=== PATIENT | female | born 1945 | race Caucasian/White ===

== ENCOUNTER → 2016-08-16 | Outpatient (CLI) | payer MEDICARE ==
--- NOTE | 2016-08-17 10:36 | MM ---
Reason for exam: screening (asymptomatic). Last mammogram was performed 2 years and 11 months ago. History: Family history of breast cancer in mother at age 59 and breast cancer in maternal grandmother. Benign excisional biopsy of the right breast, 1998. Physical Findings: A clinical breast exam by your physician is recommended on an annual basis and results should be correlated with mammographic findings. MG Screening Mammo w CAD Bilateral CC and MLO view(s) were taken. Prior study comparison: September 23, 2013, bilateral MG screening mammo w CAD. January 19, 2011, mammogram, performed at [facility]. The breast tissue is almost entirely fat. No significant changes when compared with prior studies. ASSESSMENT: Benign, BI-RAD 2 RECOMMENDATION: Routine screening mammogram of both breasts in 1 year.
== END | disposition home or self-care (01) ==
LOC: RADMAMWWP 09:15
PROVIDERS: ATTEND Family Medicine
DX: Z12.31 Encounter for screening mammogram for malignant neoplasm of breast (principal)

== ENCOUNTER 2017-06-15 10:34 | Emergency (ER) | payer MEDICARE ==
--- NOTE | 2017-06-15 11:25 | ED ---
General Adult HPI - General Chief complaint: Fall Stated complaint: fall, rt rib pain Time Seen by Provider: 06/15/17 11:07 Source: patient, RN notes reviewed Mode of arrival: ambulatory Limitations: no limitations - History of Present Illness Initial comments: 71-year-old female presents to the emergency department with a chief complaint of right-sided rib pain. Patient states she was in the shower last night she went to get up out of the tub she slipped and landed onto her right ribs. Patient states that the lower right ribs hurt. She states that certain movements will make them her but if she sits still she has no pain. She's not requiring any pain medication. She states she did not hit her head. There is no lightheadedness or dizziness no loss of consciousness prior to the incident. She states that she has no abdominal pain with this. No nausea no vomiting. She states that she was concerned due to the right rib pain today so she thought that she should be evaluated to ensure if she has broken ribs or not. Patient denies any other symptoms at this time.Patient denies any recent fever, chills, shortness of breath, chest pain, back pain, abdominal pain, nausea vomiting, numbness or tingling, dysuria or hematuria, constipation or diarrhea, headaches or visual changes, or any other current symptoms. - Related Data Home Medications Medication Instructions Recorded Confirmed Budesonide-Formot 160-4.5 Mcg 2 puff INHALATION RT-BID 10/06/15 06/15/17 [Symbicort 160-4.5 Mcg Inhaler] Metoprolol Tartrate [Lopressor] 50 mg PO DAILY 10/06/15 06/15/17 Simvastatin [Zocor] 40 mg PO HS 10/06/15 06/15/17 Venlafaxine HCl [Effexor] 75 mg PO BID 10/06/15 06/15/17 traZODone HCL [Desyrel] 200 mg PO HS 10/06/15 06/15/17 Albuterol Sulfate [Proventil Hfa] 2 puff INHALATION RT-Q4H PRN 06/15/17 06/15/17 L.acidoph,Paracasei, B.lactis 1 cap PO DAILY 06/15/17 06/15/17 [Probiotic] Allergies Allergy/AdvReac Type Severity Reaction Status Date / Time Sulfa (Sulfonamide Allergy Rash/Hives Verified 06/15/17 11:17 Antibiotics) Review of Systems ROS Statement: Those systems with pertinent positive or pertinent negative responses have been documented in the HPI. ROS Other: All systems not noted in ROS Statement are negative. Past Medical History Past Medical History: COPD History of Any Multi-Drug Resistant Organisms: None Reported Past Surgical History: Cholecystectomy, Hysterectomy Additional Past Surgical History / Comment(s): breasy biopsy, right ear Past Psychological History: No Psychological Hx Reported Smoking Status: Never smoker Past Alcohol Use History: Occasional Past Drug Use History: None Reported General Exam Limitations: no limitations General appearance: alert, in no apparent distress Eye exam: Present: normal appearance, PERRL, EOMI. Absent: scleral icterus, conjunctival injection, periorbital swelling ENT exam: Present: normal exam, mucous membranes moist Neck exam: Present: normal inspection. Absent: tenderness, meningismus, lymphadenopathy Respiratory exam: Present: normal lung sounds bilaterally, chest wall tenderness (Right lower rib cage). Absent: respiratory distress, wheezes, rales , rhonchi, stridor Cardiovascular Exam: Present: regular rate, normal rhythm, normal heart sounds. Absent: systolic murmur, diastolic murmur, rubs, gallop, clicks GI/Abdominal exam: Present: soft, normal bowel sounds. Absent: distended, tenderness, guarding, rebound, rigid Back exam: Present: normal inspection Neurological exam: Present: alert, oriented X3 Psychiatric exam: Present: normal affect, normal mood Skin exam: Present: warm, dry, intact, normal color. Absent: rash Course Vital Signs 06/15/17 10:45 Temperature 98.1 F Pulse Rate 67 Respiratory 18 Rate Blood Pressure 112/62 O2 Sat by Pulse 96 Oximetry Medical Decision Making - Medical Decision Making 71-year-old female presents to the emergency department with a chief complaint of right-sided rib pain after a slip and fall last night. Patient's abdomen is soft and nontender at this time. At this time patient's x-ray does show 3 minimal rib fractures. This and the patient is having no shortness of breath. Patient does not even request pain medication. This time I believe the patient is stable for discharge home. We did discuss care and splinting at home. We did discuss return parameters all questions. Patient family stated they understood and management this plan. All questions have been answered. Patient will be discharged. - Radiology Data Radiology results: report reviewed, image reviewed Disposition Clinical Impression: Fall, Multiple fractures of ribs, right side, initial encounter for closed fracture Disposition: HOME SELF-CARE Condition: Stable Instructions: Rib Fracture (ED) Additional Instructions: Please use medication as discussed. Please follow up with family doctor if symptoms have not improved over the next two days. Please return to the emergency room if your symptoms increase or worsen or for any other concerns. Referrals: Marcela Nelson MD [Primary Care Provider] - 1-2 days Time of Disposition: 12:03
--- NOTE | 2017-06-15 11:52 | XR ---
EXAMINATION TYPE: XR ribs RT w pa chest xray DATE OF EXAM: 06/15/2017 COMPARISON: NONE HISTORY: Pain TECHNIQUE: 4 views of the ribs and a PA view of the chest are submitted. FINDINGS: There is diffuse hyperinflation. No sizable pneumothorax. No pleural effusion or consolidation. Surgi steven clips in the gallbladder fossa. There is a minimally displaced fracture of the anterolateral margin of the right seventh, eighth, and ninth rib. IMPRESSION: 1. Minimally displaced fractures involving the right anterolateral seventh, eighth and ninth ribs.
[2017-06-15 12:12] VITALS: BP 159/74; PULSE 61; RESP 16; TEMP 99
== END 2017-06-15 12:23 | disposition home or self-care (01) ==
LOC: EC 10:34
DX: S22.41XA Multiple fractures of ribs, right side, initial encounter for closed fracture (principal); J44.9 Chronic obstructive pulmonary disease, unspecified; Z79.51 Long term (current) use of inhaled steroids; Z79.899 Other long term (current) drug therapy; Z88.2 Allergy status to sulfonamides; W01.0XXA Fall on same level from slipping, tripping and stumbling without subsequent striking against object, initial encounter; Y92.002 Bathroom of unspecified non-institutional (private) residence as the place of occurrence of the external cause
CPT/HCPCS: 99283

== ENCOUNTER → 2017-09-14 | Outpatient (CLI) | payer MEDICARE ==
[2017-09-14 10:53] LABS: Basophils # (A) 0.1 k/uL (0-0.2); Basophils % (A) 1 %; Eosinophils # (A) 0.3 k/uL (0-0.7); Eosinophils % (A) 3 %; HCT 44.4 % (34.0-46.0); HGB 14.9 gm/dL (11.4-16.0); Lymphocytes # (A) 2.3 k/uL (1.0-4.8); Lymphocytes % (A) 28 %; MCH 31.4 pg (25.0-35.0); MCHC 33.5 g/dL (31.0-37.0); MCV 93.6 fL (80.0-100.0); Mean Platelet Volume 6.1; Monocytes # (A) 0.7 k/uL (0-1.0); Monocytes % (A) 8 %; Neutrophils # (A) 4.7 k/uL (1.3-7.7); Neutrophils % (A) 57 %; Platelet Count 250 k/uL (150-450); RBC 4.74 m/uL (3.80-5.40); RDW 12.8 % (11.5-15.5); WBC 8.3 k/uL (3.8-10.6)
[2017-09-14 11:16] LABS: Albumin 4.5 g/dL (3.5-5.0); Calcium 9.8 mg/dL (8.4-10.2); Potassium 4.8 mmol/L (3.5-5.1); Total Bilirubin 0.5 mg/dL (0.2-1.3); Total Protein 7.4 g/dL (6.3-8.2)
[2017-09-14 11:30] LABS: T4, Free (Free Thyroxine) 0.94 ng/dL (0.78-2.19)
== END | disposition home or self-care (01) ==
LOC: LABWHC1 09:58
PROVIDERS: ATTEND Internal Medicine
DX: Z00.00 Encounter for general adult medical examination without abnormal findings (principal); E78.5 Hyperlipidemia, unspecified
CPT/HCPCS: 36415; 80053; 80061; 84439; 84443; 85025

== ENCOUNTER → 2018-04-09 | Day surgery (SDC) | payer MEDICARE ==
[2018-04-05 10:31] VITALS: BMI 24.0
[~2018-04-09] MED LIST: LACTATED RINGERS 1,000 ML IV SCH; LIDOCAINE 1% 20 ML VIAL (10MG/ML) FOR IV START INTRADERMA PRN; PROPOFOL 10 MG/ML 20 ML VIAL IV ONE
[2018-04-09 07:15] VITALS: TEMP 98.1
--- NOTE | 2018-04-09 08:36 | P.PCN ---
Date of Procedure: 04/09/18 Procedure(s) Performed: Procedure: Total colonoscopy. Preoperative diagnosis: Screening for neoplasia, patient has history of polyps. Postoperative diagnosis: Sigmoid diverticulosis with no evidence of acute diverticulitis, strictures, significant polyps or cancer. Preparation: HalfLytely prep. Sedation: Was provided by anesthesia. Brief clinical history: The patient is a 52-year-old female who is scheduled for this examination because of history of polyps. Her last exam was more than 5 years ago. The patient has no abdominal complaints, bleeding or anemia. She thinks this is her third exam. Procedure: With the patient on her left lateral decubitus position and after informed consent and adequate sedation, the perianal area was inspected and it did not show any fissures or fistulas. There were no masses felt on digital rectal examination. The Olympus CFH 190L video colonoscope was then inserted in the rectum in the usual fashion and advanced to the cecum. There were multiple diverticular orifices seen scattered in the sigmoid and left side but there was no evidence of acute diverticulitis or strictures. The mucosa appeared healthy. No polyps or tumors were seen. I retroflexed the endoscope in the rectum before the endoscope was withdrawn. The patient tolerated the procedure well. Plan: The patient was reassured. Discussed dietary measures. She will follow- up with you as planned and I recommended repeat exam in 5 years depending on her overall health at that time.
[2018-04-09 08:40] VITALS: RESP 16
[2018-04-09 08:54] VITALS: PULSE 58
[2018-04-09 09:24] VITALS: BP 125/74
== END ==
LOC: ORWHC2ENDO 06:44
DX: Z12.11 Encounter for screening for malignant neoplasm of colon (principal); K57.30 Diverticulosis of large intestine without perforation or abscess without bleeding; Z86.010 Personal history of colon polyps; J44.9 Chronic obstructive pulmonary disease, unspecified; I10 Essential (primary) hypertension; E78.5 Hyperlipidemia, unspecified; Z79.51 Long term (current) use of inhaled steroids; Z79.899 Other long term (current) drug therapy; Z88.2 Allergy status to sulfonamides
CPT/HCPCS: J2704; G0105; 45378

== ENCOUNTER → 2018-04-11 | Outpatient (CLI) | payer MEDICARE ==
--- NOTE | 2018-04-12 14:11 | MM ---
Reason for exam: screening (asymptomatic). Last mammogram was performed 1 year and 8 months ago. History: Family history of breast cancer in mother at age 59 and breast cancer in maternal grandmother. Benign excisional biopsy of the right breast, 1998. Physical Findings: A clinical breast exam by your physician is recommended on an annual basis and results should be correlated with mammographic findings. MG 3D Screening Mammo W/Cad Bilateral CC and MLO view(s) were taken. Prior study comparison: August 16, 2016, bilateral MG screening mammo w CAD. September 23, 2013, bilateral MG screening mammo w CAD. There are scattered fibroglandular densities. Benign calcifications in the left breast. No suspicious abnormality. No significant changes when compared with prior studies. ASSESSMENT: Benign, BI-RAD 2 RECOMMENDATION: Routine screening mammogram of both breasts in 1 year.
== END | disposition home or self-care (01) ==
LOC: RADMAMWWP 15:09
PROVIDERS: ATTEND Internal Medicine
DX: Z12.31 Encounter for screening mammogram for malignant neoplasm of breast (principal)
CPT/HCPCS: 77063; 77067

== ENCOUNTER → 2019-06-06 | Outpatient (CLI) | payer MEDICARE ==
[2019-06-06 08:44] LABS: Basophils # (A) 0.1 k/uL (0-0.2); Basophils % (A) 1 %; Eosinophils # (A) 0.2 k/uL (0-0.7); Eosinophils % (A) 3 %; HCT 47.3 % (34.0-46.0); HGB 15.4 gm/dL (11.4-16.0); Lymphocytes # (A) 2.5 k/uL (1.0-4.8); Lymphocytes % (A) 32 %; MCH 31.2 pg (25.0-35.0); MCHC 32.6 g/dL (31.0-37.0); MCV 95.7 fL (80.0-100.0); Mean Platelet Volume 6.8; Monocytes # (A) 0.6 k/uL (0-1.0); Monocytes % (A) 8 %; Neutrophils % (A) 53 %; Platelet Count 271 k/uL (150-450); RBC 4.94 m/uL (3.80-5.40); RDW 12.3 % (11.5-15.5); WBC 7.6 k/uL (3.8-10.6)
[2019-06-06 16:51] LABS: Albumin 4.5 g/dL (3.80-4.90); Albumin/Globulin Ratio 2.14 (1.60-3.17); Anion Gap 4.5 mmol/L (4.00-12.00); BUN/Creat Ratio 13.33 Ratio (12.00-20.00); Calcium 9.6 mg/dL (8.7-10.3); Carbon Dioxide 32.5 mmol/L (21.6-31.8); Chol/HDL Ratio 5.57; Globulin 2.1 g/dL (1.6-3.3); LDL Cholesterol,Calculated 158.6 mg/dL (0.0-131.0); Magnesium 1.9 mg/dL (1.5-2.4); Potassium 4.2 mmol/L (3.5-5.5); Total Bilirubin 0.5 mg/dL (0.3-1.2); Total Protein 6.6 g/dL (6.2-8.2); VLDL Calculation 42.4 mg/dL (5.00-40.00)
[2019-06-06 17:00] LABS: T4, Free (Free Thyroxine) 1.2 ng/dL (0.80-1.80)
== END | disposition home or self-care (01) ==
LOC: LABWHC1 07:57
PROVIDERS: ATTEND Internal Medicine
DX: E55.9 Vitamin D deficiency, unspecified (principal); R53.83 Other fatigue; R53.1 Weakness
CPT/HCPCS: 36415; 80053; 80061; 82306; 82607; 83735; 84439; 84443; 85025

== ENCOUNTER 2020-01-05 21:50 | Emergency (ER) | payer MEDICARE ==
[2020-01-05 21:55] VITALS: RESP 18
[2020-01-05] MEDS ORDERED: SODIUM CHLORIDE 0.9% 1,000 ML IV STA (22:13)
--- NOTE | 2020-01-05 22:26 | ED ---
Abdominal Pain HPI - General Chief Complaint: Abdominal Pain Stated Complaint: Abd Pain Time Seen by Provider: 01/05/20 21:58 Source: patient, RN notes reviewed Mode of arrival: ambulatory Limitations: no limitations - History of Present Illness Initial Comments: 74-year-old female presents emergency Department chief complaint left lower quadrant abdominal pain. Patient states his started order flank region earlier this morning states that symptoms have now migrated lower. Patient states she felt constipated so she took some Maalox did have multiple bowel movements with no relief of symptoms. Denies any melena or hematochezia. Denies any hemate mesis or coffee-ground emesis no dysuria no hematuria no urinary frequency. Denies fevers or chills no history of diverticulitis. She's had a prior hysterectomy. Patient denies any flank pain, chest pain or shortness breath. - Related Data Home Medications Medication Instructions Recorded Confirmed Budesonide-Formot 160-4.5 Mcg 2 puff INHALATION RT-BID 10/06/15 01/05/20 [Symbicort 160-4.5 Mcg Inhaler] Metoprolol Tartrate [Lopressor] 50 mg PO HS 10/06/15 01/05/20 Venlafaxine HCl [Effexor] 75 mg PO BID 10/06/15 01/05/20 traZODone HCL [Desyrel] 200 mg PO HS 10/06/15 01/05/20 L.acidoph,Paracasei, B.lactis 1 cap PO HS 06/15/17 01/05/20 [Probiotic] Multivit with Calcium,Iron,Min 1 tab PO DAILY 04/05/18 01/05/20 [Women's Multivitamin] Ezetimibe [Zetia] 10 mg PO HS 01/05/20 01/05/20 Vit C/E/Zn/Coppr/Lutein/Zeaxan 1 cap PO HS 01/05/20 01/05/20 [Preservision Areds 2 Softgel] Previous Rx's Medication Instructions Recorded Amoxicillin/Potassium Clav 1 tab PO Q12HR #20 tab 01/05/20 [Augmentin 875-125 Tablet] Allergies Allergy/AdvReac Type Severity Reaction Status Date / Time Sulfa (Sulfonamide Allergy Rash/Hives Verified 01/05/20 22:31 Antibiotics) Review of Systems ROS Statement: Those systems with pertinent positive or pertinent negative responses have been documented in the HPI. ROS Other: All systems not noted in ROS Statement are negative. Past Medical History Past Medical History: COPD, Hyperlipidemia, Hypertension Additional Past Medical History / Comment(s): hx. colon polyps History of Any Multi-Drug Resistant Organisms: None Reported Past Surgical History: Breast Surgery, Cholecystectomy, Hysterectomy Additional Past Surgical History / Comment(s): breast biopsy, cyst removed right ear Past Anesthesia/Blood Transfusion Reactions: No Reported Reaction Past Psychological History: No Psychological Hx Reported Smoking Status: Former smoker Past Alcohol Use History: Occasional Past Drug Use History: None Reported - Past Family History Mother Family Medical History: No Reported History General Exam Limitations: no limitations General appearance: alert, in no apparent distress Head exam: Present: atraumatic, normocephalic, normal inspection Respiratory exam: Present: normal lung sounds bilaterally. Absent: respiratory distress, wheezes, rales, rhonchi, stridor Cardiovascular Exam: Present: regular rate, normal rhythm, normal heart sounds. Absent: systolic murmur, diastolic murmur, rubs, gallop, clicks GI/Abdominal exam: Present: soft, tenderness (Moderate left lower), normal bowel sounds. Absent: distended, guarding, rebound, rigid Back exam: Absent: CVA tenderness (R), CVA tenderness (L) Neurological exam: Present: alert, oriented X3 Skin exam: Present: warm, dry, intact, normal color. Absent: rash Course Vital Signs 01/05/20 21:51 Temperature 97.9 F Pulse Rate 58 L Respiratory 18 Rate Blood Pressure 168/79 O2 Sat by Pulse 97 Oximetry Medical Decision Making - Medical Decision Making 74-year-old female presented for abdominal pain CT shows evidence of diverticulitis without perforation or abscess. Mild leukocytosis but otherwise stable. I did offer admission to the patient by EMS, good presentation, pain control. Patient states that she prefers to go home strict return parameters were outlined. - Lab Data Result diagrams: 01/05/20 22:26 01/05/20 22:26 Lab Results 01/05/20 01/05/20 01/05/20 Range/Units 22:26 22:26 22:26 WBC 12.6 H (3.8-10.6) k/uL RBC 4.40 (3.80-5.40) m/uL Hgb 13.7 (11.4-16.0) gm/dL Hct 41.0 (34.0-46.0) % MCV 93.2 (80.0-100.0) fL MCH 31.2 (25.0-35.0) pg MCHC 33.5 (31.0-37.0) g/dL RDW 12.6 (11.5-15.5) % Plt Count 256 (150-450) k/uL Neutrophils % 70 % Lymphocytes % 16 % Monocytes % 10 % Eosinophils % 2 % Basophils % 1 % Neutrophils # 8.8 H (1.3-7.7) k/uL Lymphocytes # 2.0 (1.0-4.8) k/uL Monocytes # 1.3 H (0-1.0) k/uL Eosinophils # 0.2 (0-0.7) k/uL Basophils # 0.1 (0-0.2) k/uL Sodium 137 (137-145) mmol/L Potassium 4.0 (3.5-5.1) mmol/L Chloride 103 (98-107) mmol/L Carbon Dioxide 28 (22-30) mmol/L Anion Gap 6 mmol/L BUN 13 (7-17) mg/dL Creatinine 0.71 (0.52-1.04) mg/dL Est GFR (CKD-EPI)AfAm >90 (>60 ml/min/1.73 sqM) Est GFR (CKD-EPI)NonAf 84 (>60 ml/min/1.73 sqM) Glucose 166 H (74-99) mg/dL Plasma Lactic Acid Odell (0.7-2.0) mmol/L Calcium 9.1 (8.4-10.2) mg/dL Total Bilirubin 0.6 (0.2-1.3) mg/dL AST 31 (14-36) U/L ALT 17 (4-34) U/L Alkaline Phosphatase 51 (38-126) U/L Total Protein 7.0 (6.3-8.2) g/dL Albumin 4.1 (3.5-5.0) g/dL Amylase 62 (30-110) U/L Lipase 145 (23-300) U/L Urine Color Yellow Urine Appearance Clear (Clear) Urine pH 7.0 (5.0-8.0) Ur Specific [place] 1.015 (1.001-1.035) Urine Protein Negative (Negative) Urine Glucose (UA) Negative (Negative) Urine Ketones Negative (Negative) Urine Blood Negative (Negative) Urine Nitrite Negative (Negative) Urine Bilirubin Negative (Negative) Urine Urobilinogen <2.0 (<2.0) mg/dL Ur Leukocyte Esterase Large H (Negative) Urine RBC 1 (0-5) /hpf Urine WBC 18 H (0-5) /hpf Ur Squamous Epith Cells 2 (0-4) /hpf Urine Mucus Rare H (None) /hpf 01/05/20 Range/Units 22:26 WBC (3.8-10.6) k/uL RBC (3.80-5.40) m/uL Hgb (11.4-16.0) gm/dL Hct (34.0-46.0) % MCV (80.0-100.0) fL MCH (25.0-35.0) pg MCHC (31.0-37.0) g/dL RDW (11.5-15.5) % Plt Count (150-450) k/uL Neutrophils % % Lymphocytes % % Monocytes % % Eosinophils % % Basophils % % Neutrophils # (1.3-7.7) k/uL Lymphocytes # (1.0-4.8) k/uL Monocytes # (0-1.0) k/uL Eosinophils # (0-0.7) k/uL Basophils # (0-0.2) k/uL Sodium (137-145) mmol/L Potassium (3.5-5.1) mmol/L Chloride (98-107) mmol/L Carbon Dioxide (22-30) mmol/L Anion Gap mmol/L BUN (7-17) mg/dL Creatinine (0.52-1.04) mg/dL Est GFR (CKD-EPI)AfAm (>60 ml/min/1.73 sqM) Est GFR (CKD-EPI)NonAf (>60 ml/min/1.73 sqM) Glucose (74-99) mg/dL Plasma Lactic Acid Odell 1.6 (0.7-2.0) mmol/L Calcium (8.4-10.2) mg/dL Total Bilirubin (0.2-1.3) mg/dL AST (14-36) U/L ALT (4-34) U/L Alkaline Phosphatase (38-126) U/L Total Protein (6.3-8.2) g/dL Albumin (3.5-5.0) g/dL Amylase (30-110) U/L Lipase (23-300) U/L Urine Color Urine Appearance (Clear) Urine pH (5.0-8.0) Ur Specific [place] (1.001-1.035) Urine Protein (Negative) Urine Glucose (UA) (Negative) Urine Ketones (Negative) Urine Blood (Negative) Urine Nitrite (Negative) Urine Bilirubin (Negative) Urine Urobilinogen (<2.0) mg/dL Ur Leukocyte Esterase (Negative) Urine RBC (0-5) /hpf Urine WBC (0-5) /hpf Ur Squamous Epith Cells (0-4) /hpf Urine Mucus (None) /hpf Disposition Clinical Impression: Diverticulitis Disposition: HOME SELF-CARE Condition: Stable Instructions (If sedation given, give patient instructions): Diverticulitis Diet (ED), Diverticulitis (ED) Additional Instructions: Please return to the Emergency Department if symptoms worsen or any other concerns. Prescriptions: Amoxicillin/Potassium Clav [Augmentin 875-125 Tablet] 1 tab PO Q12HR #20 tab Is patient prescribed a controlled substance at d/c from ED?: No Referrals: Marcela Nelson MD [Primary Care Provider] - 1-2 days Time of Disposition: 23:42
[2020-01-05 22:38] LABS: Basophils # (A) 0.1 k/uL (0-0.2); Basophils % (A) 1 %; Eosinophils # (A) 0.2 k/uL (0-0.7); Eosinophils % (A) 2 %; HGB 13.7 gm/dL (11.4-16.0); Lymphocytes % (A) 16 %; MCH 31.2 pg (25.0-35.0); MCHC 33.5 g/dL (31.0-37.0); MCV 93.2 fL (80.0-100.0); Monocytes # (A) 1.3 k/uL (0-1.0); Monocytes % (A) 10 %; Neutrophils # (A) 8.8 k/uL (1.3-7.7); Neutrophils % (A) 70 %; Platelet Count 256 k/uL (150-450); RDW 12.6 % (11.5-15.5); WBC 12.6 k/uL (3.8-10.6)
[2020-01-05 22:45] LABS: Appearance,Urine Clear (Clear); Bilirubin,Urine Negative (Negative); Blood,Urine Negative (Negative); Color,Urine Yellow; Glucose,Urine (UA) Negative (Negative); Ketones,Urine Negative (Negative); Leukocyte Esterase,Urine Large (Negative); Mucus,Urine Rare /hpf; Nitrite,Urine Negative (Negative); Protein,Urine Negative (Negative); RBC,Urine 1 /hpf (0-5); Specific Gravity,Urine 1.015 (1.001-1.035); Squamous Epithelial Cell,Urine 2 /hpf (0-4); Urobilinogen,Urine <2.0 mg/dL (<2.0); WBC,Urine 18 /hpf (0-5)
[2020-01-05 22:46] LABS: ALT 17 U/L (4-34); AST 31 U/L (14-36); African American GFR (CKD) >90 (>60 ml/min/1.73 sqM); Albumin 4.1 g/dL (3.5-5.0); Alkaline Phosphatase 51 U/L (38-126); Amylase 62 U/L (30-110); Anion Gap 6 mmol/L; Blood Urea Nitrogen 13 mg/dL (7-17); Calcium 9.1 mg/dL (8.4-10.2); Carbon Dioxide 28 mmol/L (22-30); Chloride 103 mmol/L (98-107); Glucose 166 mg/dL (74-99); Non-African American GFR(CKD) 84 (>60 ml/min/1.73 sqM); Sodium 137 mmol/L (137-145); Total Bilirubin 0.6 mg/dL (0.2-1.3)
--- NOTE | 2020-01-05 23:32 | CT ---
EXAMINATION TYPE: CT abdomen pelvis w con DATE OF EXAM: 01/05/2020 COMPARISON: 07/17/2014 HISTORY: pain CT DLP: 904.80 mGycm Automated exposure control for dose reduction was used. CONTRAST: Performed with IV Contrast, patient injected with 100 mL of Isovue 300. Lung bases are clear. There is no pleural effusion. Heart size is normal. There is no pericardial eff usion. Liver spleen pancreas stomach appear normal. Bile ducts are not dilated. There are clips from cholecy stectomy. There is 1 cm cyst in the right lobe of the liver. There is no adrenal mass. Kidneys show satisfactory contrast opacification. There are multiple small bilateral renal cortical cysts. There is no hydronephrosis. Ureters are not dilated. There is normal excretion on the delayed images. There is no retroperitoneal adenopathy. Bladder distends smoothly. T here is no inguinal hernia. There is no evidence of free air. There is fat stranding and wall thickening involving proximal sigmoid colon. There are numerous sigmo id diverticula. There is small amount of free fluid in the pelvis. There are multiple calcifications in the cecum. Appendix is not definitely seen. There is no sign of thickened appendix. There is no ev idence of a bowel obstruction. Lumbar vertebra have normal alignment. There is no compression fracture. Bony pelvis is intact. Hip j oints are intact. IMPRESSION: There is evidence of diverticulitis of the proximal sigmoid colon that is a change compared to old ex am. There is extensive colonic diverticulosis. No definite abscess seen. Multiple bilateral small renal cortical cysts.
[2020-01-05] MEDS ORDERED: PIPERACILLIN-TAZOBACTAM 3.375 GM in SODIUM CHLORIDE 0.9% 100 ML IVPB STA (23:39)
[2020-01-05] MEDS ORDERED: MORPHINE SULFATE 4 MG/ML SYRINGE IVP STA (23:40)
[2020-01-05] MEDS ORDERED: cefTRIAXone IN SWFI 1,000 MG/10 ML SYRINGE IVP STA (23:40)
[2020-01-05] MEDS ORDERED: metroNIDAZOLE 500 MG TAB PO STA (23:40)
[2020-01-05] MEDS ORDERED: ONDANSETRON 4 MG/2 ML VIAL IVP STA (23:40)
[2020-01-05] MEDS ORDERED: ACET/COD 300 MG/30 MG STARTER PACK 6 TAB BTL PO STA (23:41)
[2020-01-05] MEDS ORDERED: diphenhydrAMINE 50 MG/ML 1 ML VIAL IVP STA (23:58)
[2020-01-06 00:23] VITALS: BP 141/67; PULSE 91; TEMP 98.3
== END 2020-01-06 00:15 | disposition home or self-care (01) ==
LOC: EC 21:50
DX: K57.32 Diverticulitis of large intestine without perforation or abscess without bleeding (principal); E78.5 Hyperlipidemia, unspecified; I10 Essential (primary) hypertension; J44.9 Chronic obstructive pulmonary disease, unspecified; Z79.51 Long term (current) use of inhaled steroids; Z88.2 Allergy status to sulfonamides; Z87.19 Personal history of other diseases of the digestive system; Z87.891 Personal history of nicotine dependence; Z53.20 Procedure and treatment not carried out because of patient's decision for unspecified reasons
CPT/HCPCS: 36415; 80053; 82150; 83605; 83690; 85025; 81001; 87086; 74177; 99284; 96374; 96375 ×3; 96361; J2270; J1200; J2405; Q9967

== ENCOUNTER → 2020-01-21 | Outpatient (CLI) | payer MEDICARE ==
--- NOTE | 2020-01-21 11:29 | BD ---
EXAMINATION TYPE: Axial Bone Density DATE OF EXAM: 01/21/2020 COMPARISON: NONE CLINICAL HISTORY: Postmenopausal female Height: 66 Weight: 150.4 FRAX RISK QUESTIONS: Alcohol (3 or more units per day): no Family History (Parent hip fracture): no Glucocorticoids (More than 3mos): no (Ex: prednisone, prednisolone, methylprednisolone, dexamethasone, and hydrocortisone). History of Fracture in Adulthood: no Secondary Osteoporosis: 1. Type 1 Diabetes: no 2. Hyperthyroidism: no 3. Menopause before 45: no 4. Malnutrition: no 5. Chronic liver disease: no Rheumatoid Arthritis: no Current Tobacco Use: no RISK FACTORS HISTORY OF: Family History of Osteoporosis: yes Active: yes Diet low in dairy products/other sources of calcium: no Postmenopausal woman: 20 years ago Lost more than 2 inches in height since high school: unsure MEDICATIONS: blood pressure, cholesterol meds, trazodone, vitamins, Effexor Additional History: EXAM MEASUREMENTS: Bone mineral densitometry was performed using the [employer] System. Bone mineral density as measured about the Lumbar spine is: ----- L1-L4(G/cm2): 0.899 T Score Values are as follows: ----- L2: -3.5 ----- L3: -2.1 ----- L4: -2.5 ----- L1-L4: -2.3 Bone mineral density has: decreased -1.6 % since study of: 09.23.2013 Bone mineral density about the R hip (g/cm2): 0.812 Bone mineral density about the L hip (g/cm2): 0.762 T Score values are as follows: -----R Neck: -1.6 -----L Neck: -2.0 -----R Total: -1.1 -----L Total: -1.1 Bone mineral density has: decreased -1.6 % since study of: 09.23.2013 IMPRESSION: Osteopenia (T Score between -2.5 and -1). There is slightly increased risk of fracture and the patient may be considered for treatment. Re-Screen 2-5 years. NOTE: T-SCORE=SD OF THE YOUNG ADULT MEAN.
--- NOTE | 2020-01-22 09:03 | MM ---
Reason for exam: screening (asymptomatic). Last mammogram was performed 1 year and 9 months ago. History: Family history of breast cancer in mother at age 59 and breast cancer in maternal grandmother. Benign excisional biopsy of the right breast, 1998. Physical Findings: A clinical breast exam by your physician is recommended on an annual basis and results should be correlated with mammographic findings. MG 3D Screening Mammo W/Cad Bilateral CC and MLO view(s) were taken. Prior study comparison: April 11, 2018, bilateral MG 3d screening mammo w/cad. August 16, 2016, bilateral MG screening mammo w CAD. There are scattered fibroglandular densities. Nodular density upper outer right breast anterior third position. ASSESSMENT: Incomplete: need additional imaging evaluation, BI-RAD 0 RECOMMENDATION: Special view mammogram of the right breast. If lesion persists on supplemental views, image directed ultrasound is recommended. [facility] will attempt to contact patient to return for supplemental views and ultrasound if indicated.
== END | disposition home or self-care (01) ==
LOC: RADMAMWWP 10:11
PROVIDERS: ATTEND Obstetrics & Gynecology
DX: Z12.31 Encounter for screening mammogram for malignant neoplasm of breast (principal); M85.80 Other specified disorders of bone density and structure, unspecified site
CPT/HCPCS: 77063; 77067; 77080

== ENCOUNTER → 2020-01-26 | Outpatient (CLI) | payer MEDICARE ==
--- NOTE | 2020-01-26 10:30 | MM ---
Reason for exam: additional evaluation requested from abnormal screening. Last mammogram was performed less than 1 month ago. History: Family history of breast cancer in mother at age 59 and breast cancer in maternal grandmother. Benign excisional biopsy of the right breast, 1998. Took hormonal contraceptives for 23 years. Physical Findings: Nurse did not find any significant physical abnormalities on exam. MG 3D Work Up W/Cad RT Spot compression CC, spot compression MLO, and LM view(s) were taken of the right breast. Prior study comparison: January 21, 2020, bilateral MG 3d screening mammo w/cad. April 11, 2018, bilateral MG 3d screening mammo w/cad. There are scattered fibroglandular densities. These results were verbally communicated with the patient and result sheet given to the patient on 01/26/20. ASSESSMENT: Incomplete: need additional imaging evaluation, BI-RAD 0 RECOMMENDATION: Ultrasound of the right breast.
--- NOTE | 2020-01-26 10:30 | USB ---
Reason for exam: additional evaluation requested from abnormal screening. History: Family history of breast cancer in mother at age 59 and breast cancer in maternal grandmother. Benign excisional biopsy of the right breast, 1998. Took hormonal contraceptives for 23 years. US Breast Workup Limited RT Technologist: Katerina Tracey Right limited breast ultrasound including focal area of concern, retroareolar and axilla demonstrates no cystic or solid lesion seen. These results were verbally communicated with the patient and result sheet given to the patient on 01/26/20. ASSESSMENT: Probably benign, BI-RAD 3 RECOMMENDATION: Follow-up diagnostic mammogram of the right breast in 6 months.
== END | disposition home or self-care (01) ==
LOC: RADMAMWWP 08:57
PROVIDERS: ATTEND Obstetrics & Gynecology
DX: R92.8 Other abnormal and inconclusive findings on diagnostic imaging of breast (principal)
CPT/HCPCS: 77065; 76642; G0279; 77061

== ENCOUNTER → 2020-05-24 | Outpatient (CLI) | payer MEDICARE ==
[2020-05-24 15:35] LABS: Basophils # (A) 0.07 X 10*3/uL (0.00-0.10); Eosinophils # (A) 0.25 X 10*3/uL (0.04-0.35); Eosinophils % (A) 3.4 %; HCT 43.1 % (37.2-46.3); HGB 14.1 g/dL (12.0-15.0); Lymphocytes # (A) 2.58 X 10*3/uL (0.90-5.00); Lymphocytes % (A) 35.5 %; MCH 31.3 pg (27.0-32.0); MCHC 32.7 g/dL (32.0-37.0); MCV 95.6 fL (80.0-97.0); Mean Platelet Volume 9.7 fL (9.5-12.2); Monocytes # (A) 0.85 X 10*3/uL (0.20-1.00); Monocytes % (A) 11.7 %; Neutrophils # (A) 3.51 X 10*3/uL (1.80-7.70); Neutrophils % (A) 48.3 %; Platelet Count 250 X 10*3/uL (140-440); RBC 4.51 X 10*6/uL (4.10-5.20); RDW 11.9 % (11.5-14.5); WBC 7.27 X 10*3/uL (4.50-10.00)
[2020-05-24 16:12] LABS: African American GFR (CKD) 63.8 (60.0-200.0); Albumin 4.6 g/dL (3.80-4.90); Albumin/Globulin Ratio 2.09 (1.60-3.17); Anion Gap 7.6 mmol/L (4.00-12.00); Calcium 9.6 mg/dL (8.7-10.3); Carbon Dioxide 31.4 mmol/L (21.6-31.8); Globulin 2.2 g/dL (1.6-3.3); Non-African American GFR(CKD) 55.1 (60.0-200.0); Potassium 4.4 mmol/L (3.5-5.5); Total Bilirubin 0.3 mg/dL (0.3-1.2); Total Protein 6.8 g/dL (6.2-8.2)
[2020-05-24 16:20] LABS: T4, Free (Free Thyroxine) 1.1 ng/dL (0.80-1.80)
== END | disposition home or self-care (01) ==
LOC: LABWHC1 10:03
PROVIDERS: ATTEND Internal Medicine
DX: R53.83 Other fatigue (principal); R53.1 Weakness
CPT/HCPCS: 36415; 80053; 82306; 84439; 84443; 85025

== ENCOUNTER 2021-03-23 18:57 | Emergency (ER) | payer MEDICARE ==
--- NOTE | 2021-03-23 20:57 | XR ---
EXAMINATION TYPE: XR chest 2V DATE OF EXAM: 03/23/2021 COMPARISON: 06/15/2017 INDICATION: Cough, shortness of breath TECHNIQUE: Single frontal view of the chest is obtained. FINDINGS: The heart size is normal. The pulmonary vasculature is normal. Mild bibasilar infiltrates are present IMPRESSION: 1. Mild bibasilar infiltrates. Correlate for atypical pneumonia.
[2021-03-23] MEDS ORDERED: SODIUM CHLORIDE 0.9% 1,000 ML IV STA (22:49)
[2021-03-23] MEDS ORDERED: ACETAMINOPHEN TAB 325 MG TAB PO STA (22:50)
[2021-03-23] MEDS ORDERED: CASIRIVIMAB (REGN10933) (EUA) 600 MG, IMDEVIMAB (REGN10987) (EUA) 600 MG in SODIUM CHLO... IVPB ONE (23:00)
[2021-03-23] MEDS ORDERED: SODIUM CHLORIDE 0.9% 50 ML IVPB ONE (23:00)
[2021-03-23 23:37] VITALS: RESP 16; TEMP 98.5
--- NOTE | 2021-03-24 01:10 | ED ---
URI HPI - General Chief Complaint: Upper Respiratory Infection Stated Complaint: SOB, headache, no taste Time Seen by Provider: 03/23/21 22:15 Source: patient, RN notes reviewed Mode of arrival: ambulatory Limitations: no limitations - History of Present Illness Initial Comments: Patient is a 75-year-old female history of COPD, hypertension, presenting to emergency Department with concerns of cold [place] last 4 days. She's been having a cough, congestion and fatigue for the last 4 days. She is here with her with similar symptoms. She has been having hot flashes and chills but no documented fevers. She denies any chest pain, only some mild shortness of breath that is typical for her. She does have some mild nausea but no vomiting, no diarrhea. Patient has no further complaints. Her vital signs are stable upon arrival. - Related Data Home Medications Medication Instructions Recorded Confirmed Budesonide-Formot 160-4.5 Mcg 2 puff INHALATION RT-BID 10/06/15 01/05/20 [Symbicort 160-4.5 Mcg Inhaler] Metoprolol Tartrate [Lopressor] 50 mg PO HS 10/06/15 01/05/20 Venlafaxine HCl [Effexor] 75 mg PO BID 10/06/15 01/05/20 traZODone HCL [Desyrel] 200 mg PO HS 10/06/15 01/05/20 L.acidoph,Paracasei, B.lactis 1 cap PO HS 06/15/17 01/05/20 [Probiotic] Multivit with Calcium,Iron,Min 1 tab PO DAILY 04/05/18 01/05/20 [Women's Multivitamin] Ezetimibe [Zetia] 10 mg PO HS 01/05/20 01/05/20 Vit C/E/Zn/Coppr/Lutein/Zeaxan 1 cap PO HS 01/05/20 01/05/20 [Preservision Areds 2 Softgel] Previous Rx's Medication Instructions Recorded Amoxicillin/Potassium Clav 1 tab PO Q12HR #20 tab 01/05/20 [Augmentin 875-125 Tablet] Allergies Allergy/AdvReac Type Severity Reaction Status Date / Time morphine Allergy Rash/Hives Verified 01/26/20 09:46 Sulfa (Sulfonamide Allergy Rash/Hives Verified 01/26/20 09:46 Antibiotics) Review of Systems ROS Statement: Those systems with pertinent positive or pertinent negative responses have been documented in the HPI. ROS Other: All systems not noted in ROS Statement are negative. Past Medical History Past Medical History: COPD, Hyperlipidemia, Hypertension Additional Past Medical History / Comment(s): hx. colon polyps History of Any Multi-Drug Resistant Organisms: None Reported Past Surgical History: Breast Surgery, Cholecystectomy, Hysterectomy Additional Past Surgical History / Comment(s): breast biopsy, cyst removed right ear Past Anesthesia/Blood Transfusion Reactions: No Reported Reaction Past Psychological History: No Psychological Hx Reported Smoking Status: Former smoker Past Alcohol Use History: Occasional Past Drug Use History: None Reported - Past Family History Mother Family Medical History: No Reported History General Exam - General Exam Comments Initial Comments: GENERAL: Patient is well-developed and well-nourished. Patient is nontoxic and in no acute distress. HEAD: Atraumatic, normocephalic. EYES: Pupils equal round and reactive to light, extraocular movements intact, sclera anicteric, conjunctiva are normal. Eyelids were unremarkable. ENT: Moist mucous membranes. NECK: Normal range of motion, supple without lymphadenopathy or JVD. LUNGS: Unlabored respirations. Breath sounds clear to auscultation bilaterally and equal. No wheezes rales or rhonchi. HEART: Regular rate and rhythm without murmurs, rubs or gallops. ABDOMEN: Soft, nontender, normoactive bowel sounds. No guarding, no rebound. No masses appreciated. MUSCULOSKELETAL: Normal extremities with adequate strength and normal range of motion, no pitting or edema. No clubbing or cyanosis. NEUROLOGICAL: Patient is alert and oriented x 3. Symmetrical smile. Normal speech, normal gait. PSYCH: Normal mood, normal affect. SKIN: Warm, Dry, normal turgor, no rashes or lesions noted. Limitations: no limitations Course Vital Signs 03/23/21 03/23/21 20:19 23:36 Temperature 99.0 F 98.5 F Pulse Rate 94 89 Respiratory 19 16 Rate Blood Pressure 155/83 146/84 O2 Sat by Pulse 93 L 94 L Oximetry Medical Decision Making - Medical Decision Making Patient is a 75-year-old female history of COPD, hypertension, presenting for cold like symptoms for the past 4 days. Her has similar complaints. Patient's vital signs are stable upon arrival. Her chest x-ray is stable, comparable to her last period patient's rapid: It is positive. Patient did agree monoclonal antibodies, she received these without adverse side effects. Her vital signs remained stable. She is stable for discharge. She will continue with her or do prescribed medications. She can follow up with her primary care, continue with Tylenol as needed for body aches. She is agreeable this plan of care and is stable for discharge. He is discussed with Dr. Kim. - Lab Data Lab Results 03/23/21 Range/Units 20:24 Coronavirus (PCR) Detected A (Not Detectd) Disposition Clinical Impression: COVID-19 Disposition: HOME SELF-CARE Condition: Stable Instructions (If sedation given, give patient instructions): Coronavirus Disease 2019 (COVID-19) Additional Instructions: Please return to the Emergency Department if symptoms worsen or any other concerns. May continue with Tylenol as needed for body aches and chills. Increase your fluid intake. Please follow-up with your primary care. Is patient prescribed a controlled substance at d/c from ED?: No Referrals: Ottoniel Odom DO [Primary Care Provider] - 1-2 days Time of Disposition: 01:10
[2021-03-24 01:29] VITALS: BP 136/67; PULSE 92
== END 2021-03-24 01:29 | disposition home or self-care (01) ==
LOC: EC 18:57
DX: U07.1 COVID-19 (principal); J44.9 Chronic obstructive pulmonary disease, unspecified; E78.5 Hyperlipidemia, unspecified; I10 Essential (primary) hypertension; Z88.2 Allergy status to sulfonamides; Z88.5 Allergy status to narcotic agent; Z86.010 Personal history of colon polyps; Z90.49 Acquired absence of other specified parts of digestive tract; Z90.710 Acquired absence of both cervix and uterus; Z87.891 Personal history of nicotine dependence
CPT/HCPCS: 99285; 96360; 87635; 71046; Q0243

== ENCOUNTER 2021-04-01 16:50 | Emergency (ER) | payer MEDICARE ==
[2021-04-01] MEDS ORDERED: SODIUM CHLORIDE 0.9% 500 ML 500 ML IV STA (17:00)
[2021-04-01 17:04] VITALS: TEMP 98.4
[2021-04-01] MEDS ORDERED: IPRATROPIUM-ALBUTEROL 3 ML NEB INHALATION STA (17:05)
--- NOTE | 2021-04-01 17:06 | ED ---
Nausea/Vomiting/Diarrhea HPI - General Stated complaint: COVID+, NVD Time Seen by Provider: 04/01/21 17:01 Source: patient - History of Present Illness Initial comments: This is a well-appearing 61-year-old male with insulin oriented 4 with complaints of shortness of breath and chest tightness for approximately 2 weeks. He states that it gets worse with exertion but at times can be when just resting. He has not had this before. He does have a history of type 2 diabetes and asthma. He states his last stress test was over 25 years ago. He does have history of high cholesterol. He denies any nausea or vomiting and he is a nonsmoker. He states that he has been using his inhaler with no relief. MD complaint: nausea, vomiting, abdominal pain -: days(s) (1) Description of Vomiting: watery Associated Abdominal Pain: Yes Location: LLQ, RLQ Radiation: none Severity scale (1-10): 4 Consistency: intermittent, now resolved Improves with: none Worsens with: other (palpation) Associated Symptoms: nausea/vomiting, shortness of breath - Related Data Home Medications Medication Instructions Recorded Confirmed Budesonide-Formot 160-4.5 Mcg 2 puff INHALATION RT-BID 10/06/15 04/01/21 [Symbicort 160-4.5 Mcg Inhaler] Metoprolol Tartrate [Lopressor] 50 mg PO HS 10/06/15 04/01/21 Venlafaxine HCl [Effexor] 75 mg PO BID 10/06/15 04/01/21 traZODone HCL [Desyrel] 200 mg PO HS 10/06/15 04/01/21 Ezetimibe [Zetia] 10 mg PO HS 01/05/20 04/01/21 Previous Rx's Medication Instructions Recorded Ondansetron Odt [Zofran Odt] 4 mg PO Q8HR PRN #10 tab 04/01/21 Allergies Allergy/AdvReac Type Severity Reaction Status Date / Time morphine Allergy Rash/Hives Verified 04/01/21 17:07 Sulfa (Sulfonamide Allergy Rash/Hives Verified 04/01/21 17:07 Antibiotics) Review of Systems ROS Statement: Those systems with pertinent positive or pertinent negative responses have been documented in the HPI. ROS Other: All systems not noted in ROS Statement are negative. Past Medical History Past Medical History: COPD, Hyperlipidemia, Hypertension Additional Past Medical History / Comment(s): hx. colon polyps History of Any Multi-Drug Resistant Organisms: None Reported Past Surgical History: Breast Surgery, Cholecystectomy, Hysterectomy Additional Past Surgical History / Comment(s): breast biopsy, cyst removed right ear Past Anesthesia/Blood Transfusion Reactions: No Reported Reaction Past Psychological History: No Psychological Hx Reported Smoking Status: Former smoker Past Alcohol Use History: Occasional Past Drug Use History: None Reported - Past Family History Mother Family Medical History: No Reported History General Exam General appearance: alert, in no apparent distress Head exam: Present: atraumatic, normocephalic, normal inspection Eye exam: Present: normal appearance, EOMI. Absent: scleral icterus, conjunctival injection, periorbital swelling ENT exam: Present: normal exam, normal oropharynx, mucous membranes moist Neck exam: Present: normal inspection, full ROM. Absent: tenderness, men ingismus, lymphadenopathy Respiratory exam: Present: normal lung sounds bilaterally. Absent: respiratory distress, wheezes, rales, rhonchi, stridor, chest wall tenderness, accessory muscle use, decreased breath sounds, prolonged expiratory Cardiovascular Exam: Present: regular rate, normal rhythm, normal heart sounds. Absent: systolic murmur, diastolic murmur, rubs, gallop, clicks, JVD GI/Abdominal exam: Present: soft, tenderness (lower abdominal pain with palpation), normal bowel sounds. Absent: distended, guarding, rebound, rigid Extremities exam: Present: normal capillary refill. Absent: pedal edema Back exam: Present: normal inspection, full ROM. Absent: tenderness, CVA tenderness (R), CVA tenderness (L), rash noted Neurological exam: Present: alert, oriented X3 Psychiatric exam: Present: normal affect, normal mood Skin exam: Present: warm, dry, intact, normal color. Absent: rash, cyanosis, diaphoretic, petechiae, pallor Course Vital Signs 04/01/21 04/01/21 04/01/21 16:51 21:07 22:28 Temperature 98.4 F Pulse Rate 83 74 98 Respiratory 20 18 18 Rate Blood Pressure 188/90 202/108 164/100 O2 Sat by Pulse 94 L 94 L Oximetry Medical Decision Making - Medical Decision Making 75-year-old female patient alert and oriented 4, presents to the emergency room with complaints of nausea and vomiting today 4. Denies any fevers but states that she tested positive for Covid on Sunday and received antibody treatment. Patient states that she is unable to keep any fluids or daily medication down. White blood cell count is 16.8 with a left shift. She does have bilateral lower abdominal pain. X-ray shows no signs of intestinal obstruction or pneumoperitoneum. Fecal pattern is normal. CT the abdomen and pelvis shows a right-sided hydronephrosis with obstructing calculus measuring 7 mm at the proximal right ureter close to the ureteral pelvic junction. There is no pleural effusion no pericardial effusion. Small cyst noted in the right lobe of the liver no pancreatic mass. There are numerous diverticula but no evidence of diverticulitis. Patient's pain was improved with Toradol and vomiting ceased with Zofran. She was given a prescription for Zofran and Tylenol threes as needed. She states that she has 600 mg of Motrin at home she can use for pain. She was directed to follow up with urology Dr Ball, states that she is familar with him. She was instructed to return to the emergency room with any new or worsening symptoms including increased pain, fevers or persistent vomiting. - Lab Data Result diagrams: 04/01/21 17:58 04/01/21 17:58 Lab Results 04/01/21 04/01/21 04/01/21 Range/Units 17:58 17:58 17:58 WBC 16.8 H (3.8-10.6) k/uL RBC 4.46 (3.80-5.40) m/uL Hgb 14.9 (11.4-16.0) gm/dL Hct 43.9 (34.0-46.0) % MCV 98.5 (80.0-100.0) fL MCH 33.3 (25.0-35.0) pg MCHC 33.8 (31.0-37.0) g/dL RDW 12.5 (11.5-15.5) % Plt Count 324 (150-450) k/uL MPV 6.8 Neutrophils % 84 % Lymphocytes % 8 % Monocytes % 5 % Eosinophils % 1 % Basophils % 0 % Neutrophils # 14.2 H (1.3-7.7) k/uL Lymphocytes # 1.4 (1.0-4.8) k/uL Monocytes # 0.9 (0-1.0) k/uL Eosinophils # 0.2 (0-0.7) k/uL Basophils # 0.0 (0-0.2) k/uL Sodium 138 (137-145) mmol/L Potassium 4.4 (3.5-5.1) mmol/L Chloride 101 (98-107) mmol/L Carbon Dioxide 30 (22-30) mmol/L Anion Gap 7 mmol/L BUN 18 H (7-17) mg/dL Creatinine 1.02 (0.52-1.04) mg/dL Est GFR (CKD-EPI)AfAm 62 (>60 ml/min/1.73 sqM) Est GFR (CKD-EPI)NonAf 54 (>60 ml/min/1.73 sqM) Glucose 132 H (74-99) mg/dL Calcium 8.7 (8.4-10.2) mg/dL Total Bilirubin 0.4 (0.2-1.3) mg/dL AST 28 (14-36) U/L ALT 41 H (4-34) U/L Alkaline Phosphatase 65 (38-126) U/L Total Protein 6.5 (6.3-8.2) g/dL Albumin 3.6 (3.5-5.0) g/dL Amylase 71 (30-110) U/L Lipase 168 (23-300) U/L Urine Color Yellow Urine Appearance Clear (Clear) Urine pH 6.0 (5.0-8.0) Ur Specific [place] 1.014 (1.001-1.035) Urine Protein Negative (Negative) Urine Glucose (UA) Negative (Negative) Urine Ketones 1+ H (Negative) Urine Blood Moderate H (Negative) Urine Nitrite Negative (Negative) Urine Bilirubin Negative (Negative) Urine Urobilinogen <2.0 (<2.0) mg/dL Ur Leukocyte Esterase Negative (Negative) Urine RBC 72 H (0-5) /hpf Urine WBC 1 (0-5) /hpf Ur Squamous Epith Cells <1 (0-4) /hpf Urine Mucus Rare H (None) /hpf - EKG Data EKG shows normal: sinus rhythm (Ventricular rate of 73, MT interval 0.140, QRS 0.82, QTC 0.445) Disposition Clinical Impression: Kidney stone on right side, Hydronephrosis Disposition: HOME SELF-CARE Condition: Good Instructions (If sedation given, give patient instructions): Kidney Stones (ED) Additional Instructions: Increase your fluid intake, take Zofran as needed for any nausea vomiting. Return to the emergency room with any new or worsening symptoms including increased back pain, fevers or any persistent vomiting. Follow-up with urology on Sunday. Prescriptions: Ondansetron Odt [Zofran Odt] 4 mg PO Q8HR PRN #10 tab PRN Reason: Nausea Is patient prescribed a controlled substance at d/c from ED?: No Referrals: Ottoniel Odom DO [Primary Care Provider] - 1-2 days Jovon Caicedo MD [STAFF PHYSICIAN] - 1-2 days Time of Disposition: 22:34
--- NOTE | 2021-04-01 18:07 | XR ---
EXAMINATION TYPE: XR KUB DATE OF EXAM: 04/01/2021 COMPARISON: NONE HISTORY: Pain and vomiting TECHNIQUE: 2 views FINDINGS: There is no sign of intestinal obstruction or pneumoperitoneum. Fecal pattern is normal. Th ere are numerous surgical clips in the right upper quadrant. There are no definite calcifications ove r the kidneys. IMPRESSION: Nonacute abdomen.
[2021-04-01] MEDS ORDERED: ONDANSETRON 4 MG/2 ML VIAL IVP STA (18:27)
[2021-04-01 18:32] LABS: Basophils % (A) 0 %; Eosinophils # (A) 0.2 k/uL (0-0.7); Eosinophils % (A) 1 %; HCT 43.9 % (34.0-46.0); HGB 14.9 gm/dL (11.4-16.0); Lymphocytes # (A) 1.4 k/uL (1.0-4.8); Lymphocytes % (A) 8 %; MCH 33.3 pg (25.0-35.0); MCHC 33.8 g/dL (31.0-37.0); MCV 98.5 fL (80.0-100.0); Mean Platelet Volume 6.8; Monocytes # (A) 0.9 k/uL (0-1.0); Monocytes % (A) 5 %; Neutrophils # (A) 14.2 k/uL (1.3-7.7); Neutrophils % (A) 84 %; Platelet Count 324 k/uL (150-450); RBC 4.46 m/uL (3.80-5.40); RDW 12.5 % (11.5-15.5); WBC 16.8 k/uL (3.8-10.6)
[2021-04-01 18:40] LABS: Albumin 3.6 g/dL (3.5-5.0); Calcium 8.7 mg/dL (8.4-10.2); Potassium 4.4 mmol/L (3.5-5.1); Total Bilirubin 0.4 mg/dL (0.2-1.3); Total Protein 6.5 g/dL (6.3-8.2)
[2021-04-01 19:36] LABS: Appearance,Urine Clear (Clear); Bilirubin,Urine Negative (Negative); Blood,Urine Moderate (Negative); Color,Urine Yellow; Glucose,Urine (UA) Negative (Negative); Ketones,Urine 1+ (Negative); Leukocyte Esterase,Urine Negative (Negative); Mucus,Urine Rare /hpf; Nitrite,Urine Negative (Negative); Protein,Urine Negative (Negative); RBC,Urine 72 /hpf (0-5); Specific Gravity,Urine 1.014 (1.001-1.035); Squamous Epithelial Cell,Urine <1 /hpf (0-4); Urobilinogen,Urine <2.0 mg/dL (<2.0); WBC,Urine 1 /hpf (0-5)
--- NOTE | 2021-04-01 20:27 | CT ---
EXAMINATION TYPE: CT abdomen pelvis w con DATE OF EXAM: 04/01/2021 COMPARISON: 01/05/2020 HISTORY: abdominal pain, nausea, vomiting, +covid CT DLP: 870.3 mGycm Automated exposure control for dose reduction was used. CONTRAST: Performed with IV Contrast, patient injected with 80cc mL of Isovue 300. Lung bases are clear of consolidation. There is some mild reticular infiltrate lateral left lung base . There is no pleural effusion. There is no pericardial effusion. There are multiple clips from cholecystectomy. There are small cysts in the right lobe of the liver. Spleen is intact. Stomach is intact. There is no pancreatic mass. There is no adrenal mass. There are numerous cortical cysts in both kidneys that measure up to 1.5 cm . There is moderate right-sided hydronephrosis with obstructing 7 mm calculus proximal right ureter. There is no retroperitoneal adenopathy. There is no inguinal hernia. There is no free fluid in the pe lvis. There are numerous diverticula in the sigmoid colon. There is no diverticulitis. Left kidney has normal size without evidence of obstruction. There is no mesenteric edema. There is n o ascites or free air. There is no sign of a bowel obstruction. Appendix is lateral and posterior and appears normal. There are rectangular filling densities in the cecum that could be ingested medicati on. The lumbar vertebra have normal alignment. There is no compression fracture. Bony pelvis is intact. T he hip joints are intact. IMPRESSION: There is right-sided hydronephrosis with obstructing calculus close to the ureteral pelvic junction. Obstruction appears new compared to old exam. Normal appendix. Extensive right side perinephric edema . There is a small infiltrate lateral left lung base that appears new compared to old exam.
[2021-04-01] MEDS ORDERED: KETOROLAC 15 MG/ML 1 ML VIAL IVP STA (20:52)
[2021-04-01] MEDS ORDERED: cefTRIAXone IN SWFI 1,000 MG/10 ML SYRINGE IVP STA (20:58)
[2021-04-01 21:08] VITALS: RESP 18
[2021-04-01] MEDS ORDERED: HYDROmorphone 0.5 MG/0.5 ML SYRINGE IVP STA (21:08)
[2021-04-01] MEDS ORDERED: METOPROLOL TARTRATE 50 MG TAB PO STA (21:08)
[2021-04-01 22:29] VITALS: BP 164/100; PULSE 98
[2021-04-01] MEDS ORDERED: ONDANSETRON 4 MG ODT STARTER PACK 2 TAB BTL PO STA (22:32)
[2021-04-01] MEDS ORDERED: ACET/COD 300 MG/30 MG STARTER PACK 6 TAB BTL PO STA (22:32)
== END 2021-04-01 22:53 | disposition home or self-care (01) ==
LOC: EC 16:50
DX: N13.2 Hydronephrosis with renal and ureteral calculous obstruction (principal); I10 Essential (primary) hypertension; E11.9 Type 2 diabetes mellitus without complications; E78.5 Hyperlipidemia, unspecified; J44.9 Chronic obstructive pulmonary disease, unspecified; Z87.891 Personal history of nicotine dependence; Z79.899 Other long term (current) drug therapy
CPT/HCPCS: 36415; 93005; 80053; 82150; 83690; 85025; 81001; 74018; 74177; 99285; 96374; 96375; J2405; J1885; S0119; Q9967

== ENCOUNTER 2022-04-18 12:34 | Emergency (ER) | payer MEDICARE ==
--- NOTE | 2022-04-18 13:19 | ED ---
SOB HPI - General Chief Complaint: Shortness of Breath Stated Complaint: NANCY Time Seen by Provider: 04/18/22 12:50 Source: patient, EMS Mode of arrival: EMS Limitations: no limitations - History of Present Illness Initial Comments: 76-year-old female presents to emergency department with reported shortness of breath. She does have a history of COPD and wears 2 L of home O2 at night. States that over the past couple of days she has had to turn her oxygen up to 3 L. She has had a productive cough with green sputum. Admits to worsening shortness of breath. She was on steroids a couple weeks ago for bronchitis. States that her breathing has not improved any. She follows with Dr. Mayorga from pulmonology. She does admit that she has sick contacts. Her daughter was sick this past weekend. She admits to nausea with vomiting. No diarrhea. Denies any abdominal pain. She denies chest pain. No previous history of cardiac disease lower external swelling. No history of DVT or PE. She has not taken any medications at home for her symptoms. Patient's did not know she was febrile before presenting to the emergency department. She called EMS due to her weakness and was given a DuoNeb breathing treatment and IV was inserted. No other alleviating, precipitating or modifying factors - Related Data Home Medications Medication Instructions Recorded Confirmed Budesonide-Formot 160-4.5 Mcg 2 puff INHALATION RT-BID 10/06/15 04/18/22 [Symbicort 160-4.5 Mcg Inhaler] Metoprolol Tartrate [Lopressor] 50 mg PO DAILY 10/06/15 04/18/22 Venlafaxine HCl [Effexor] 75 mg PO BID 10/06/15 04/18/22 traZODone HCL [Desyrel] 100 mg PO HS 10/06/15 04/18/22 Albuterol Inhaler [Ventolin Hfa 1 - 2 puff INHALATION RT-Q6H PRN 04/18/22 04/18/22 Inhaler] Ipratropium-Albuterol Nebulize 3 ml INHALATION RT-QID PRN 04/18/22 04/18/22 [Duoneb 0.5 mg-3 mg/3 ml Soln] Previous Rx's Medication Instructions Recorded guaiFENesin-Coden 100-10MG/5ML 5 ml PO Q6H PRN 3 Days #60 ml 04/18/22 [Robitussin AC] predniSONE [Deltasone] 20 mg PO BID #10 tab 04/18/22 Allergies Allergy/AdvReac Type Severity Reaction Status Date / Time morphine Allergy Rash/Hives Verified 04/18/22 13:31 Sulfa (Sulfonamide Allergy Rash/Hives Verified 04/18/22 13:31 Antibiotics) Review of Systems ROS Statement: Those systems with pertinent positive or pertinent negative responses have been documented in the HPI. ROS Other: All systems not noted in ROS Statement are negative. Past Medical History Past Medical History: COPD, Hyperlipidemia, Hypertension Additional Past Medical History / Comment(s): hx. colon polyps History of Any Multi-Drug Resistant Organisms: None Reported Past Surgical History: Breast Surgery, Cholecystectomy, Hysterectomy Additional Past Surgical History / Comment(s): breast biopsy, cyst removed right ear Past Anesthesia/Blood Transfusion Reactions: No Reported Reaction Past Psychological History: No Psychological Hx Reported Smoking Status: Former smoker Past Alcohol Use History: Occasional Past Drug Use History: None Reported - Past Family History Mother Family Medical History: No Reported History General Exam Limitations: no limitations General appearance: alert, in no apparent distress Head exam: Present: atraumatic, normocephalic, normal inspection Eye exam: Present: normal appearance, PERRL, EOMI. Absent: scleral icterus, conjunctival injection, periorbital swelling ENT exam: Present: normal exam, mucous membranes moist Neck exam: Present: normal inspection. Absent: tenderness, meningismus, lymphadenopathy Respiratory exam: Present: decreased breath sounds. Absent: respiratory distress, wheezes, rales, rhonchi, stridor, accessory muscle use Cardiovascular Exam: Present: normal rhythm, tachycardia, normal heart sounds. Absent: systolic murmur, diastolic murmur, rubs, gallop, clicks GI/Abdominal exam: Present: soft, normal bowel sounds. Absent: distended, tenderness, guarding, rebound, rigid Extremities exam: Present: normal inspection, full ROM, normal capillary refill. Absent: tenderness, pedal edema, joint swelling, calf tenderness Back exam: Present: normal inspection Neurological exam: Present: alert, oriented X3, CN II-XII intact Psychiatric exam: Present: normal affect, normal mood Skin exam: Present: warm, dry, intact, normal color. Absent: rash Course Vital Signs 1204/18/22 04/18/22 12:36 14:30 15:42 Temperature 101.2 F H 98.1 F Pulse Rate 125 H 113 H 105 H Respiratory 22 18 18 Rate Blood Pressure 164/87 170/95 153/83 O2 Sat by Pulse 94 L 91 L 92 L Oximetry Medical Decision Making - Medical Decision Making Arrival patient was placed in room 5. A thorough history and physical exam was performed. Patient does have a 101.2 temp. Heart rate 125 with recent albuterol administered. IV is established and laboratory studies are conducted. Patient is swabbed for influenza and Covid. Chest x-rays performed. She was given 1000 mg of Tylenol for fever, 4 mg of Zofran for nausea and a liter bolus of normal saline. Ever trace studies reviewed and demonstrated to the patient is positive for influenza a. Chest x-ray demonstrates COPD changes with no acute process. Patient is reevaluated. Discuss the diagnosis, differential and treatment options. Patient would prefer to go home at this time. I recommended treatment with Tamiflu however patient does not feel that she would benefit from this medication. She would prefer treatment with cough syrup and steroids. I did give her 60 mg in the emergency department of prednisone. She is start taking the prednisone course tomorrow. I also prescribed codeine cough syrup. She is to take Tylenol thousand milligrams 3 times a day. Use her nebulizer as directed. Follow-up with her primary care doctor in 2-4 days or return for any new or worsening symptoms. Patient agreeable to treatment plan and she was discharged home in stable condition - Lab Data Result diagrams: 04/18/22 13:42 04/18/22 13:42 Lab Results 04/18/22 04/18/22 04/18/22 Range/Units 13:15 13:42 13:42 WBC 7.8 (3.8-10.6) k/uL RBC 4.16 (3.80-5.40) m/uL Hgb 13.8 (11.4-16.0) gm/dL Hct 38.8 (34.0-46.0) % MCV 93.4 (80.0-100.0) fL MCH 33.2 (25.0-35.0) pg MCHC 35.5 (31.0-37.0) g/dL RDW 12.6 (11.5-15.5) % Plt Count 179 (150-450) k/uL MPV 7.7 Neutrophils % 79 % Lymphocytes % 9 % Monocytes % 7 % Eosinophils % 1 % Basophils % 0 % Neutrophils # 6.2 (1.3-7.7) k/uL Lymphocytes # 0.7 L (1.0-4.8) k/uL Monocytes # 0.6 (0-1.0) k/uL Eosinophils # 0.1 (0-0.7) k/uL Basophils # 0.0 (0-0.2) k/uL PT 10.3 (9.0-12.0) sec INR 1.0 (<1.2) APTT 22.4 (22.0-30.0) sec Sodium (137-145) mmol/L Potassium (3.5-5.1) mmol/L Chloride (98-107) mmol/L Carbon Dioxide (22-30) mmol/L Anion Gap mmol/L BUN (7-17) mg/dL Creatinine (0.52-1.04) mg/dL Est GFR (CKD-EPI)AfAm (>60 ml/min/1.73 sqM) Est GFR (CKD-EPI)NonAf (>60 ml/min/1.73 sqM) Glucose (74-99) mg/dL Lactic Ac Sepsis Rflx Plasma Lactic Acid Odell (0.7-2.0) mmol/L Calcium (8.4-10.2) mg/dL Magnesium (1.6-2.3) mg/dL Total Bilirubin (0.2-1.3) mg/dL AST (14-36) U/L ALT (4-34) U/L Alkaline Phosphatase (38-126) U/L Troponin I (0.000-0.034) ng/mL Total Protein (6.3-8.2) g/dL Albumin (3.5-5.0) g/dL Influenza Type A (PCR) Detected A (Not Detectd) Influenza Type B (PCR) Not Detected (Not Detectd) RSV (PCR) Not Detected (Not Detectd) SARS-CoV-2 (PCR) Not Detected (Not Detectd) 04/18/22 04/18/22 04/18/22 Range/Units 13:42 13:42 13:42 WBC (3.8-10.6) k/uL RBC (3.80-5.40) m/uL Hgb (11.4-16.0) gm/dL Hct (34.0-46.0) % MCV (80.0-100.0) fL MCH (25.0-35.0) pg MCHC (31.0-37.0) g/dL RDW (11.5-15.5) % Plt Count (150-450) k/uL MPV Neutrophils % % Lymphocytes % % Monocytes % % Eosinophils % % Basophils % % Neutrophils # (1.3-7.7) k/uL Lymphocytes # (1.0-4.8) k/uL Monocytes # (0-1.0) k/uL Eosinophils # (0-0.7) k/uL Basophils # (0-0.2) k/uL PT (9.0-12.0) sec INR (<1.2) APTT (22.0-30.0) sec Sodium 137 (137-145) mmol/L Potassium 3.5 (3.5-5.1) mmol/L Chloride 102 (98-107) mmol/L Carbon Dioxide 27 (22-30) mmol/L Anion Gap 8 mmol/L BUN 14 (7-17) mg/dL Creatinine 0.81 (0.52-1.04) mg/dL Est GFR (CKD-EPI)AfAm 82 (>60 ml/min/1.73 sqM) Est GFR (CKD-EPI)NonAf 71 (>60 ml/min/1.73 sqM) Glucose 122 H (74-99) mg/dL Lactic Ac Sepsis Rflx Plasma Lactic Acid Odell 2.1 H* (0.7-2.0) mmol/L Calcium 8.2 L (8.4-10.2) mg/dL Magnesium 1.8 (1.6-2.3) mg/dL Total Bilirubin 0.4 (0.2-1.3) mg/dL AST 28 (14-36) U/L ALT 23 (4-34) U/L Alkaline Phosphatase 69 (38-126) U/L Troponin I <0.012 (0.000-0.034) ng/mL Total Protein 6.7 (6.3-8.2) g/dL Albumin 3.8 (3.5-5.0) g/dL Influenza Type A (PCR) (Not Detectd) Influenza Type B (PCR) (Not Detectd) RSV (PCR) (Not Detectd) SARS-CoV-2 (PCR) (Not Detectd) 04/18/22 Range/Units 14:06 WBC (3.8-10.6) k/uL RBC (3.80-5.40) m/uL Hgb (11.4-16.0) gm/dL Hct (34.0-46.0) % MCV (80.0-100.0) fL MCH (25.0-35.0) pg MCHC (31.0-37.0) g/dL RDW (11.5-15.5) % Plt Count (150-450) k/uL MPV Neutrophils % % Lymphocytes % % Monocytes % % Eosinophils % % Basophils % % Neutrophils # (1.3-7.7) k/uL Lymphocytes # (1.0-4.8) k/uL Monocytes # (0-1.0) k/uL Eosinophils # (0-0.7) k/uL Basophils # (0-0.2) k/uL PT (9.0-12.0) sec INR (<1.2) APTT (22.0-30.0) sec Sodium (137-145) mmol/L Potassium (3.5-5.1) mmol/L Chloride (98-107) mmol/L Carbon Dioxide (22-30) mmol/L Anion Gap mmol/L BUN (7-17) mg/dL Creatinine (0.52-1.04) mg/dL Est GFR (CKD-EPI)AfAm (>60 ml/min/1.73 sqM) Est GFR (CKD-EPI)NonAf (>60 ml/min/1.73 sqM) Glucose (74-99) mg/dL Lactic Ac Sepsis Rflx Y Plasma Lactic Acid Odell (0.7-2.0) mmol/L Calcium (8.4-10.2) mg/dL Magnesium (1.6-2.3) mg/dL Total Bilirubin (0.2-1.3) mg/dL AST (14-36) U/L ALT (4-34) U/L Alkaline Phosphatase (38-126) U/L Troponin I (0.000-0.034) ng/mL Total Protein (6.3-8.2) g/dL Albumin (3.5-5.0) g/dL Influenza Type A (PCR) (Not Detectd) Influenza Type B (PCR) (Not Detectd) RSV (PCR) (Not Detectd) SARS-CoV-2 (PCR) (Not Detectd) - EKG Data EKG Comments: EKG demonstrates sinus tachycardia with a rate of 121. OR interval 139. QRS 88. QTC of 398. No acute ST segment elevations. Mild ST depression V4 through V6. EKG interpreted by myself Disposition Clinical Impression: Pyrexia, Tachycardia, Acute respiratory insufficiency, Influenza A, COPD exacerbation Disposition: HOME SELF-CARE Condition: Stable Instructions (If sedation given, give patient instructions): Influenza (ED) Additional Instructions: Take the steroids as directed starting tomorrow. Wear your oxygen to maintain oxygen saturation above 90%. The codeine cough syrup has mucinex in it so no need to take extra mucinex. Use your albuterol nebulizer or inhaler every 4 hours. Take Tylenol 1000 mg every 8 hours for fever control. Follow-up with your doctor in 2-4 days and return for any new or worsening symptoms Prescriptions: predniSONE [Deltasone] 20 mg PO BID #10 tab guaiFENesin-Coden 100-10MG/5ML [Robitussin AC] 5 ml PO Q6H PRN 3 Days #60 ml PRN Reason: Cough Is patient prescribed a controlled substance at d/c from ED?: Yes When asked, does pt state using other controlled substances?: No If prescribed controlled substance>3 days was MAPS reviewed?: Prescribed <3 Days Referrals: Bill Pa MD [Primary Care Provider] - 1-2 days Time of Disposition: 15:23
[2022-04-18] MEDS ORDERED: ONDANSETRON 4 MG/2 ML VIAL IVP STA (13:43)
[2022-04-18] MEDS ORDERED: ACETAMINOPHEN TAB 500 MG TAB PO STA (13:43)
[2022-04-18] MEDS ORDERED: SODIUM CHLORIDE 0.9% 1,000 ML IV ONE (13:43)
[2022-04-18 13:50] LABS: Basophils % (A) 0 %; Eosinophils # (A) 0.1 k/uL (0-0.7); Eosinophils % (A) 1 %; HCT 38.8 % (34.0-46.0); HGB 13.8 gm/dL (11.4-16.0); Lymphocytes # (A) 0.7 k/uL (1.0-4.8); Lymphocytes % (A) 9 %; MCH 33.2 pg (25.0-35.0); MCHC 35.5 g/dL (31.0-37.0); MCV 93.4 fL (80.0-100.0); Mean Platelet Volume 7.7; Monocytes # (A) 0.6 k/uL (0-1.0); Monocytes % (A) 7 %; Neutrophils # (A) 6.2 k/uL (1.3-7.7); Neutrophils % (A) 79 %; Platelet Count 179 k/uL (150-450); RBC 4.16 m/uL (3.80-5.40); RDW 12.6 % (11.5-15.5); WBC 7.8 k/uL (3.8-10.6)
[2022-04-18 14:04] LABS: Partial Thromboplastin Time 22.4 sec (22.0-30.0); Prothrombin Time 10.3 sec (9.0-12.0)
[2022-04-18 14:05] LABS: Albumin 3.8 g/dL (3.5-5.0); Calcium 8.2 mg/dL (8.4-10.2); Magnesium 1.8 mg/dL (1.6-2.3); Potassium 3.5 mmol/L (3.5-5.1); Total Bilirubin 0.4 mg/dL (0.2-1.3); Total Protein 6.7 g/dL (6.3-8.2)
--- NOTE | 2022-04-18 14:07 | XR ---
EXAMINATION TYPE: XR chest 2V DATE OF EXAM: 04/18/2022 COMPARISON: 03/23/2021 HISTORY: 76-year-old female weakness, difficulty in breathing, shortness of breath TECHNIQUE: AP and lateral views FINDINGS: Heart normal size. Atherosclerotic arch calcifications. Hyperinflation with upper lung predominant em physematous change. Strandy atelectasis in the lower lungs. No consolidation or pleural effusion seen . IMPRESSION: COPD without acute process seen.
[2022-04-18 14:42] VITALS: RESP 18
[2022-04-18] MEDS ORDERED: predniSONE 20 MG TAB PO STA (15:16)
[2022-04-18 15:55] VITALS: BP 153/83; PULSE 105; TEMP 98.1
== END 2022-04-18 15:42 | disposition home or self-care (01) ==
LOC: EC 12:34
DX: J10.1 Influenza due to other identified influenza virus with other respiratory manifestations (principal); J44.1 Chronic obstructive pulmonary disease with (acute) exacerbation; R00.0 Tachycardia, unspecified; I10 Essential (primary) hypertension; Z20.822 Contact with and (suspected) exposure to COVID-19; Z79.899 Other long term (current) drug therapy; Z87.891 Personal history of nicotine dependence; Z79.51 Long term (current) use of inhaled steroids; Z88.2 Allergy status to sulfonamides; Z88.5 Allergy status to narcotic agent
CPT/HCPCS: 96361 ×2; 96374 ×2; 99285 ×2; 36415; 93005; 80053; 83605; 83735; 84484; 85025; 85610; 85730; 87636; 71046; J2405; J7512

== ENCOUNTER 2022-10-19 12:55 | Emergency (ER) | payer MEDICARE ==
[2022-10-19 13:24] VITALS: PULSE 67
--- NOTE | 2022-10-19 14:47 | XR ---
EXAMINATION TYPE: XR foot complete RT DATE OF EXAM: 10/19/2022 2:37 PM INDICATION: Patient age:Female; 77 years old; Reason for study: r foot pain; COMPARISON: None TECHNIQUE: The right foot was examined in the AP, oblique, and lateral projections. FINDINGS: No evidence of any acute osseous pathology. No evidence of soft tissue swelling. Joints are preserve d. Soft tissue swelling of the forefoot no evidence for osseous erosion. Remote injury to the third d igit proximal phalanx head. IMPRESSION: No evidence of acute fracture. Soft tissue swelling of the forefoot without evidence of fracture.
[2022-10-19 14:57] LABS: Basophils % (A) 0 %; Eosinophils # (A) 0.4 k/uL (0-0.7); Eosinophils % (A) 3 %; HCT 40.4 % (34.0-46.0); HGB 13.6 gm/dL (11.4-16.0); Lymphocytes # (A) 2.2 k/uL (1.0-4.8); Lymphocytes % (A) 19 %; MCH 32.3 pg (25.0-35.0); MCHC 33.7 g/dL (31.0-37.0); MCV 95.6 fL (80.0-100.0); Mean Platelet Volume 7.1; Monocytes # (A) 0.9 k/uL (0-1.0); Monocytes % (A) 8 %; Neutrophils # (A) 7.7 k/uL (1.3-7.7); Neutrophils % (A) 68 %; Platelet Count 261 k/uL (150-450); RBC 4.22 m/uL (3.80-5.40); RDW 12.1 % (11.5-15.5); WBC 11.4 k/uL (3.8-10.6)
--- NOTE | 2022-10-19 15:29 | ED ---
General Adult HPI - General Chief complaint: Extremity Injury, Lower Stated complaint: Rt foot injury Time Seen by Provider: 10/19/22 13:31 Source: patient Mode of arrival: ambulatory Limitations: no limitations - History of Present Illness Initial comments: 77-year-old female presents to ED with a chief complaint of right foot pain. And states that she woke up this morning he started to feel pain of the right foot, worse with walking and states pressing on it increases pain. Denies any known trauma to the foot. No history of diabetes. Denies chest pain shortness of breath. Eyes fever No other complaints. - Related Data Home Medications Medication Instructions Recorded Confirmed Budesonide-Formot 160-4.5 Mcg 2 puff INHALATION RT-BID 10/06/15 04/18/22 [Symbicort 160-4.5 Mcg Inhaler] Metoprolol Tartrate [Lopressor] 50 mg PO DAILY 10/06/15 04/18/22 Venlafaxine HCl [Effexor] 75 mg PO BID 10/06/15 04/18/22 traZODone HCL [Desyrel] 100 mg PO HS 10/06/15 04/18/22 Albuterol Inhaler [Ventolin Hfa 1 - 2 puff INHALATION RT-Q6H PRN 04/18/22 04/18/22 Inhaler] Ipratropium-Albuterol Nebulize 3 ml INHALATION RT-QID PRN 04/18/22 04/18/22 [Duoneb 0.5 mg-3 mg/3 ml Soln] Previous Rx's Medication Instructions Recorded guaiFENesin-Coden 100-10MG/5ML 5 ml PO Q6H PRN 3 Days #60 ml 04/18/22 [Robitussin AC] predniSONE [Deltasone] 20 mg PO BID #10 tab 04/18/22 Ibuprofen [Motrin] 600 mg PO Q8HR PRN #20 tab 10/19/22 Allergies Allergy/AdvReac Type Severity Reaction Status Date / Time morphine Allergy Rash/Hives Verified 10/19/22 13:24 Sulfa (Sulfonamide Allergy Rash/Hives Verified 10/19/22 13:24 Antibiotics) Review of Systems ROS Statement: Those systems with pertinent positive or pertinent negative responses have been documented in the HPI. ROS Other: All systems not noted in ROS Statement are negative. Past Medical History Past Medical History: COPD, Hyperlipidemia, Hypertension Additional Past Medical History / Comment(s): hx. colon polyps History of Any Multi-Drug Resistant Organisms: None Reported Past Surgical History: Breast Surgery, Cholecystectomy, Hysterectomy Additional Past Surgical History / Comment(s): breast biopsy, cyst removed right ear Past Anesthesia/Blood Transfusion Reactions: No Reported Reaction Past Psychological History: No Psychological Hx Reported Smoking Status: Former smoker Past Alcohol Use History: Occasional Past Drug Use History: None Reported - Past Family History Mother Family Medical History: No Reported History General Exam Limitations: no limitations General appearance: alert, in no apparent distress Head exam: Present: atraumatic, normocephalic Eye exam: Present: normal appearance Respiratory exam: Present: normal lung sounds bilaterally Cardiovascular Exam: Present: regular rate, normal rhythm Extremities exam: Present: other (EP/PT pulses 2+. Strength and sensation of bilateral lower extremities 5/5. Warmth, erythema, tenderness to palpation at the right first MTP. No significant edema.) Neurological exam: Present: alert, oriented X3 Psychiatric exam: Present: normal affect, normal mood Skin exam: Present: warm, dry Course Vital Signs 10/19/22 13:20 Temperature 97.9 F Pulse Rate 67 Respiratory 20 Rate Blood Pressure 111/64 O2 Sat by Pulse 95 Oximetry Medical Decision Making - Medical Decision Making Was pt. sent in by a medical professional or institution ([facility], [employer], urgent care, hospital, or long-term...) When possible be specific @ -No Did you speak to anyone other than the patient for history (EMS, parent, family, police, friend...)? What history was obtained from this source @ -No Did you review nursing and triage notes (agree or disagree)? Why? @ -I reviewed and agree with nursing and triage notes Were old charts reviewed (outside hosp., previous admission, EMS record, old EKG, old radiological studies, urgent care reports/EKG's, long-term records)? Report findings @ -No old charts were reviewed Differential Diagnosis (chest pain, altered mental status, abdominal pain women, abdominal pain men, vaginal bleeding, weakness, fever, dyspnea, syncope, headache, dizziness, GI bleed, back pain, seizure, CVA, palpatations, mental health, musculoskeletal)? @ -Cellulitis, gout, pseudogout. This Is not meant to be an all-inclusive list EKG interpreted by me (3pts min.). @ -None X-rays interpreted by me (1pt min.). @ -X-ray showed no acute finding CT interpreted by me (1pt min.). @ -None done U/S interpreted by me (1pt. min.). @ -None done What testing was considered but not performed or refused? (CT, X-rays, U/S, labs)? Why? @ -None What meds were considered but not given or refused? Why? @ -None Did you discuss the management of the patient with other professionals (professionals i.e. , PA, [employer], lab, RT, psych nurse, social service technician, attorney lawyer, teacher, operations officer trust department, case managers)? Give summary @ -No Was smoking cessation discussed for >3mins.? @ -No Was critical care preformed (if so, how long)? @ -No Were there social determinants of health that impacted care today? How? (Home lessness, low income, unemployed, alcoholism, drug addiction, transportation, low edu. Level, literacy, decrease access to med. care, snf, rehab)? @ -No Was there de-escalation of care discussed even if they declined (Discuss DNR or withdrawal of care, Hospice)? DNR status @ -No What co-morbidities impacted this encounter? (DM, HTN, Smoking, COPD, CAD, Cancer, CVA, ARF, Chemo, Hep., AIDS, mental health diagnosis, sleep apnea, morbid obesity)? @ -None Was patient admitted / discharged? Hospital course, mention meds given and route, prescriptions, significant lab abnormalities, going to OR and other pertinent info. @ -Discharge. Imaging as above. Labs showed minimal elevation in white count. Patient afebrile. Unlikely representing cellulitis. Findings more consistent with gout. Will be discharged home with prescription for ibuprofen. Advised follow-up with PCP. Discussed return precautions with patient who verbalizes agreement. Undiagnosed new problem with uncertain prognosis? @ -No Drug Therapy requiring intensive monitoring for toxicity (Heparin, Nitro, Insulin, Cardizem)? @ -No Were any procedures done? @ -No Diagnosis/symptom? @ -Gout Acute, or Chronic, or Acute on Chronic? @ -Acute Uncomplicated (without systemic symptoms) or Complicated (systemic symptoms)? @ -Uncomplicated Side effects of treatment? @ -No Exacerbation, Progression, or Severe Exacerbation? @ -No Poses a threat to life or bodily function? How? (Chest pain, [place], [place], pneumonia, PE, COPD, DKA, ARF, appy, cholecystitis, CVA, Diverticulitis, Homicidal, Suicidal, threat to staff... and all critical care pts) @ -No - Lab Data Result diagrams: 10/19/22 14:45 Lab Results 10/19/22 Range/Units 14:45 WBC 11.4 H (3.8-10.6) k/uL RBC 4.22 (3.80-5.40) m/uL Hgb 13.6 (11.4-16.0) gm/dL Hct 40.4 (34.0-46.0) % MCV 95.6 (80.0-100.0) fL MCH 32.3 (25.0-35.0) pg MCHC 33.7 (31.0-37.0) g/dL RDW 12.1 (11.5-15.5) % Plt Count 261 (150-450) k/uL MPV 7.1 Neutrophils % 68 % Lymphocytes % 19 % Monocytes % 8 % Eosinophils % 3 % Basophils % 0 % Neutrophils # 7.7 (1.3-7.7) k/uL Lymphocytes # 2.2 (1.0-4.8) k/uL Monocytes # 0.9 (0-1.0) k/uL Eosinophils # 0.4 (0-0.7) k/uL Basophils # 0.0 (0-0.2) k/uL Disposition Clinical Impression: Gout Disposition: HOME SELF-CARE Condition: Good Instructions (If sedation given, give patient instructions): Gout (ED) Prescriptions: Ibuprofen [Motrin] 600 mg PO Q8HR PRN #20 tab PRN Reason: Pain Is patient prescribed a controlled substance at d/c from ED?: No Referrals: Bill Pa MD [Primary Care Provider] - 1-2 days Time of Disposition: 15:29
[2022-10-19 15:55] VITALS: BP 117/68; RESP 14; TEMP 98.1
== END 2022-10-19 15:55 | disposition home or self-care (01) ==
LOC: EC 12:55
DX: M10.9 Gout, unspecified (principal); J44.9 Chronic obstructive pulmonary disease, unspecified; I10 Essential (primary) hypertension; Z79.51 Long term (current) use of inhaled steroids; Z79.899 Other long term (current) drug therapy; Z87.891 Personal history of nicotine dependence; Z88.5 Allergy status to narcotic agent; Z88.2 Allergy status to sulfonamides
CPT/HCPCS: 36415; 85025; 99284

== ENCOUNTER → 2022-12-20 | Outpatient (CLI) | payer MEDICARE ==
--- NOTE | 2022-12-20 11:55 | MM ---
Reason for Exam: Follow-up at short interval from prior study. Last screening mammogram was performed 12 month(s) ago. Patient History: Menarche at age 12. First Full-Term at age 19. Hysterectomy at age 39. Patient used Hormonal Contraceptives for 23 years. 1998, Benign Excisional Biopsy on the right side. Maternal grandmother had breast cancer. Mother had breast cancer, age 59. Risk Values: Kristen 5 year model risk: 3.9%. NCI Lifetime model risk: 6.9%. Prior Study Comparison: 09/10/2009 [facility]. 01/19/2011 Screening Mammogram, [facility]. 09/23/2013 Bilateral Screening Mammogram, [facility]. 08/16/2016 Bilateral Screening Mammogram, [facility]. 04/11/2018 Bilateral Screening Mammogram, [facility]. 01/21/2020 Bilateral Screening Mammogram, [facility]. 01/26/2020 Right Diagnostic Mammogram, [facility]. 01/26/2020 Right Diagnostic Ultrasound, [facility]. 12/15/2021 Bilateral MG 3D screening mammo w/cad, [facility]. Tissue Density: There are scattered fibroglandular densities. Findings: Analyzed By CAD. Chronic nodularity anterior left breast. No significant change from prior exams. Overall Assessment: Benign, BI-RAD 2 Management: Screening Mammogram of both breasts in 1 year. See note below in regards to patient's increased 5 year Kristen score. Results were given to the patient verbally at the time of exam. Patient should continue monthly self-breast exams. A clinical breast exam by your physician is recommended on an annual basis. This exam should not preclude additional follow-up of suspicious palpable abnormalities. Note on Kristen scores and lifetime risk: 1. A Kristen score greater than 3% is considered moderate risk. If this is the case, consider specialist referral to assess eligibility for a risk reducing agent. 2. If overall lifetime risk for the development of breast cancer is 20% or higher, the patient may qualify for future screening with alternating mammogram and breast MRI. Electronically signed and approved by: Ok Acosta M.D. Radiologist
== END | disposition home or self-care (01) ==
LOC: RADMAMWWP 10:57
PROVIDERS: ATTEND Family Medicine
DX: R92.8 Other abnormal and inconclusive findings on diagnostic imaging of breast (principal); Z80.3 Family history of malignant neoplasm of breast
CPT/HCPCS: 77066; G0279; 77062

== ENCOUNTER 2023-08-23 17:35 | Inpatient (IN) | payer MEDICARE ==
[2023-08-23 17:44] LABS: Glucose,Whole Blood 130 mg/dL (70-110)
[2023-08-23 18:06] LABS: Basophils # (A) 0.1 k/uL (0-0.2); Basophils % (A) 1 %; Eosinophils # (A) 0.4 k/uL (0-0.7); Eosinophils % (A) 5 %; HCT 40.3 % (34.0-46.0); HGB 13.7 gm/dL (11.4-16.0); Lymphocytes # (A) 2.3 k/uL (1.0-4.8); Lymphocytes % (A) 30 %; MCH 32.4 pg (25.0-35.0); MCHC 33.9 g/dL (31.0-37.0); MCV 95.5 fL (80.0-100.0); Mean Platelet Volume 7.5; Monocytes # (A) 0.8 k/uL (0-1.0); Monocytes % (A) 10 %; Neutrophils # (A) 3.9 k/uL (1.3-7.7); Neutrophils % (A) 51 %; Platelet Count 215 k/uL (150-450); RBC 4.22 m/uL (3.80-5.40); RDW 12.6 % (11.5-15.5); WBC 7.7 k/uL (3.8-10.6)
--- NOTE | 2023-08-23 18:08 | CT ---
EXAMINATION TYPE: CT brain wo con DATE OF EXAM: 08/23/2023 COMPARISON: 09/24/2013 HISTORY: Neuro deficit, acute, stroke suspected CT DLP: 1055.2 mGycm Automated exposure control for dose reduction was used. Multiple axial images were obtained from the skull base to the vertex without use of IV contrast material. Findings: The ventricles, basal cisterns and sulci over the convexities are within normal limits and there is n o mass effect or shift of midline structures. No abnormal density is seen throughout the brain parenchyma and there is no acute intra or extra-axia l hemorrhage. The posterior fossa including the brainstem, fourth ventricle and cerebellar pontine angles appear no rmal. Intraorbital contents appear normal and symmetric. Visualized paranasal sinuses and mastoid air cells are well aerated. The calvarium is intact. IMPRESSION: No significant abnormality seen. There is no acute bleed or mass effect.
[2023-08-23 18:09] LABS: INR 0.9 (<1.2); Prothrombin Time 10.2 sec (10.0-12.5)
[2023-08-23 18:15] LABS: ALT 29 U/L (4-34); AST 27 U/L (14-36); African American GFR (CKD) 74 (>60 ml/min/1.73 sqM); Albumin 3.7 g/dL (3.5-5.0); Alkaline Phosphatase 75 U/L (38-126); Anion Gap 7 mmol/L; Blood Urea Nitrogen 14 mg/dL (7-17); Calcium 8.8 mg/dL (8.4-10.2); Carbon Dioxide 30 mmol/L (22-30); Chloride 104 mmol/L (98-107); Creatine Kinase 101 U/L (30-135); Glucose 127 mg/dL (74-99); Non-African American GFR(CKD) 64 (>60 ml/min/1.73 sqM); Potassium 3.9 mmol/L (3.5-5.1); Sodium 141 mmol/L (137-145); Total Bilirubin 0.3 mg/dL (0.2-1.3); Total Protein 6.3 g/dL (6.3-8.2)
--- NOTE | 2023-08-23 18:24 | CT ---
EXAMINATION TYPE: CT angio head neck DATE OF EXAM: 08/23/2023 HISTORY: Neuro deficit, acute, stroke suspected COMPARISON: None CT DLP: 432.5 mGycm. Automated Exposure Control for Dose Reduction was Utilized. TECHNIQUE: CTA scan of the head and neck is performed with IV Contrast, patient injected with 65 cc mL of Isovue 370, axial images are obtained, coronal and sagittal reformatted images are reviewed. 3D reconstructed images are created on an independent workstation and reviewed. FINDINGS: FINDINGS: The brachiocephalic origins are widely patent and no significant stenosis. There is no significant stenosis of the common or internal carotid arteries within the neck. There is moderate eccentric calcified plaque of the origin of the right internal carotid artery resulting in a mild less than 50% stenosis. There is no stenosis of the vertebral arteries. Intracranially, there is no stenosis, segmental occlusion, sizable aneurysm sac or vascular malformat ion. IMPRESSION:. 1. Brachiocephalic origins are widely patent without significant stenosis. 2. No significant stenosis of the common or internal carotid arteries within the neck. Calcified plaq ue at the origin of the right internal carotid artery resulting in mild stenosis. 3. No occlusive disease, aneurysm sac or vascular malformation intracranially. NASCET criteria was used in interpretation of this exam? NASCET criteria was used in interpretation of this exam?
--- NOTE | 2023-08-23 18:55 | XR ---
EXAMINATION TYPE: XR chest 1V portable DATE OF EXAM: 08/23/2023 COMPARISON: 04/18/2022 HISTORY: CVA TECHNIQUE: Single frontal view of the chest is obtained. FINDINGS: There is no focal air space opacity, pleural effusion, or pneumothorax seen. The cardiac silhouette size is within normal limits. The osseous structures are intact. IMPRESSION: No acute process.
[2023-08-23] MEDS: ASPIRIN 325 MG TAB PO STA (19:00)
--- NOTE | 2023-08-23 19:04 | ED ---
General Adult HPI - General Chief complaint: Neuro Symptoms/Deficit Stated complaint: Stroke symptoms Time Seen by Provider: 08/23/23 17:39 Source: patient, EMS, RN notes reviewed, old records reviewed Mode of arrival: EMS Limitations: no limitations - History of Present Illness Initial comments: 77-year-old female presenting with concern for strokelike symptoms. Patient had developed drooling, mild slurred speech and facial droop at approximately 9:30 AM this morning. Patient presents as a code stroke activation. She presents at approximately 1730. Patient has no limb weakness or numbness. No headache. Initial NIH of 2. Striae of hypertension and hyperlipidemia. - Related Data Home Medications Medication Instructions Recorded Confirmed traZODone HCL [Desyrel] 100 mg PO HS 10/06/15 08/23/23 Fluticasone Propion/Salmeterol 1 puff INHALATION RT-BID 08/23/23 08/23/23 [Fluticasone-Salmeterol 250-50] Loratadine [Claritin] 10 mg PO HS 08/23/23 08/23/23 Magnesium Citrate Chew(Unknown 1 tab PO HS 08/23/23 08/23/23 Dose) Metoprolol Tartrate [Lopressor] 100 mg PO BID 08/23/23 08/23/23 Nac 600mg 1 tab PO DAILY 08/23/23 08/23/23 Potassium Gluconate 99 mg PO HS 08/23/23 08/23/23 Rosuvastatin [Crestor] 20 mg PO HS 08/23/23 08/23/23 Venlafaxine HCl [Effexor XR] 75 mg PO BID 08/23/23 08/23/23 Allergies Allergy/AdvReac Type Severity Reaction Status Date / Time morphine Allergy Rash/Hives Verified 08/23/23 18:50 Sulfa (Sulfonamide Allergy Rash/Hives Verified 08/23/23 18:50 Antibiotics) Review of Systems ROS Statement: Those systems with pertinent positive or pertinent negative responses have been documented in the HPI. ROS Other: All systems not noted in ROS Statement are negative. Past Medical History Past Medical History: COPD, Hyperlipidemia, Hypertension Additional Past Medical History / Comment(s): hx. colon polyps History of Any Multi-Drug Resistant Organisms: None Reported Past Surgical History: Breast Surgery, Cholecystectomy, Hysterectomy Additional Past Surgical History / Comment(s): breast biopsy, cyst removed right ear Past Anesthesia/Blood Transfusion Reactions: No Reported Reaction Past Psychological History: No Psychological Hx Reported Smoking Status: Former smoker Past Alcohol Use History: Occasional Past Drug Use History: None Reported - Past Family History Mother Family Medical History: No Reported History General Exam Limitations: no limitations General appearance: alert, in no apparent distress Head exam: Present: atraumatic, normocephalic Eye exam: Present: normal appearance. Absent: PERRL (Anisocoria) Neck exam: Present: normal inspection Respiratory exam: Present: normal lung sounds bilaterally. Absent: respiratory distress, wheezes Cardiovascular Exam: Present: regular rate, normal rhythm GI/Abdominal exam: Present: soft. Absent: distended, tenderness Extremities exam: Present: normal inspection, normal capillary refill Neurological exam: Present: alert, oriented X3, motor sensory deficit (Right facial droop, mild dysarthria, NIH of 2) Psychiatric exam: Present: normal affect, normal mood Skin exam: Present: warm, dry, intact Course Vital Signs 08/23/23 08/23/23 08/23/23 17:37 17:40 17:45 Temperature 97.5 F L Pulse Rate 78 87 84 Respiratory 18 18 18 Rate Blood Pressure 153/117 140/87 148/84 O2 Sat by Pulse 96 98 96 Oximetry 08/23/23 08/23/23 17:55 19:00 Temperature Pulse Rate 80 62 Respiratory 18 16 Rate Blood Pressure 155/73 122/82 O2 Sat by Pulse 95 95 Oximetry Medical Decision Making - Medical Decision Making Was pt. sent in by a medical professional or institution (, PA, LUMP RECEIVER, urgent care, hospital, or prison...) When possible be specific @ -No Did you speak to anyone other than the patient for history (EMS, parent, family, police, friend...)? What history was obtained from this source @ -No Did you review nursing and triage notes (agree or disagree)? Why? @ -I reviewed and agree with nursing and triage notes Were old charts reviewed (outside hosp., previous admission, EMS record, old E KG, old radiological studies, urgent care reports/EKG's, prison records)? Report findings @ -No old charts were reviewed Differential Diagnosis differential CVA Ischemic stroke, hemorrhagic stroke, brain tumor, atypical migraine, Wernicke's encephalopathy, seizure, multiple sclerosis, meningitis, encephalitis, hypoglycemia, Guillain-Justice, electrolytes disturbance, myasthenia gravis.... Th is is not meant to be an all-inclusive list EKG interpreted by me (3pts min.). @EKG sinus rhythm rate of 81, normal OH interval, QRS duration 90, QTc [address] segment elevation. X-rays interpreted by me (1pt min.). @ -Single view chest x-ray negative for acute cardiopulmonary findings. CT interpreted by me (1pt min.). @ -CT brain negative for intracranial hemorrhage or mass effect, CT angiography negative for large vessel occlusion. U/S interpreted by me (1pt. min.). @ -None done What testing was considered but not performed or refused? (CT, X-rays, U/S, labs)? Why? @ -None What meds were considered but not given or refused? Why? @ -None Did you discuss the management of the patient with other professionals (professionals i.e. Dr., PA, LUMP RECEIVER, lab, RT, psych nurse, social psychologist, fuller brush worker, teacher, gifts officer, oil field caser)? Give summary @ -Case discussed with the stroke network, not a thrombolytic candidate, not a thrombectomy candidate secondary to low NIH and onset of symptoms. Discussed with Dr. Pa who will admit. Was smoking cessation discussed for >3mins.? @ -No Was critical care preformed (if so, how long)? @Yes, 35 minutes Were there social determinants of health that impacted care today? How? (Homelessness, low income, unemployed, alcoholism, drug addiction, transportation, low edu. Level, literacy, decrease access to med. care, longterm, rehab)? @ -No Was there de-escalation of care discussed even if they declined (Discuss DNR or withdrawal of care, Hospice)? DNR status @ -No What co-morbidities impacted this encounter? (DM, HTN, Smoking, COPD, CAD, Can cer, CVA, ARF, Chemo, Hep., AIDS, mental health diagnosis, sleep apnea, morbid obesity)? @ -[Hypertension, hypercholesterolemia Was patient admitted / discharged? Hospital course, mention meds given and route, prescriptions, significant lab abnormalities, going to OR and other pertinent info. @ -77-year-old female presenting with stroke symptoms right-sided facial droop and mild dysarthria. NIH of 2. Patient is taken immediately to CT CT angiography. Code stroke was activated. Patient not a thrombolytic candidate secondary to onset and not a thrombectomy candidate secondary to low NIH and no large vessel occlusion. Patient has normal laboratory testing. She is given an aspirin in the emergency department. She will be admitted for further stroke evaluation. Undiagnosed new problem with uncertain prognosis? @ -[No Drug Therapy requiring intensive monitoring for toxicity (Heparin, Nitro, Insulin, Cardizem)? @ -No Were any procedures done? @ -No Diagnosis/symptom? @CVA Acute, or Chronic, or Acute on Chronic? @ -Acute Uncomplicated (without systemic symptoms) or Complicated (systemic symptoms)? @ -Default Side effects of treatment? @ -No Exacerbation, Progression, or Severe Exacerbation? @ -No Poses a threat to life or bodily function? How? (Chest pain, [place], [place], pneumonia, PE, COPD, DKA, ARF, appy, cholecystitis, CVA, Diverticulitis, Homicidal, Suicidal, threat to staff... and all critical care pts) @ -Yes, CVA - Lab Data Result diagrams: 08/23/23 17:47 08/23/23 17:47 Lab Results 08/23/23 08/23/23 08/23/23 Range/Units 17:42 17:47 17:47 WBC 7.7 (3.8-10.6) k/uL RBC 4.22 (3.80-5.40) m/uL Hgb 13.7 (11.4-16.0) gm/dL Hct 40.3 (34.0-46.0) % MCV 95.5 (80.0-100.0) fL MCH 32.4 (25.0-35.0) pg MCHC 33.9 (31.0-37.0) g/dL RDW 12.6 (11.5-15.5) % Plt Count 215 (150-450) k/uL MPV 7.5 Neutrophils % 51 % Lymphocytes % 30 % Monocytes % 10 % Eosinophils % 5 % Basophils % 1 % Neutrophils # 3.9 (1.3-7.7) k/uL Lymphocytes # 2.3 (1.0-4.8) k/uL Monocytes # 0.8 (0-1.0) k/uL Eosinophils # 0.4 (0-0.7) k/uL Basophils # 0.1 (0-0.2) k/uL PT 10.2 (10.0-12.5) sec INR 0.9 (<1.2) APTT 21.0 L (22.0-30.0) sec Sodium (137-145) mmol/L Potassium (3.5-5.1) mmol/L Chloride (98-107) mmol/L Carbon Dioxide (22-30) mmol/L Anion Gap mmol/L BUN (7-17) mg/dL Creatinine (0.52-1.04) mg/dL Est GFR (CKD-EPI)AfAm (>60 ml/min/1.73 sqM) Est GFR (CKD-EPI)NonAf (>60 ml/min/1.73 sqM) Glucose (74-99) mg/dL POC Glucose (mg/dL) 130 H (70-110) mg/dL POC Glu School Director ID Rivas, Jeremie Calcium (8.4-10.2) mg/dL Total Bilirubin (0.2-1.3) mg/dL AST (14-36) U/L ALT (4-34) U/L Alkaline Phosphatase (38-126) U/L Creatine Kinase (30-135) U/L Troponin I (0.000-0.034) ng/mL Total Protein (6.3-8.2) g/dL Albumin (3.5-5.0) g/dL 08/23/23 08/23/23 Range/Units 17:47 17:47 WBC (3.8-10.6) k/uL RBC (3.80-5.40) m/uL Hgb (11.4-16.0) gm/dL Hct (34.0-46.0) % MCV (80.0-100.0) fL MCH (25.0-35.0) pg MCHC (31.0-37.0) g/dL RDW (11.5-15.5) % Plt Count (150-450) k/uL MPV Neutrophils % % Lymphocytes % % Monocytes % % Eosinophils % % Basophils % % Neutrophils # (1.3-7.7) k/uL Lymphocytes # (1.0-4.8) k/uL Monocytes # (0-1.0) k/uL Eosinophils # (0-0.7) k/uL Basophils # (0-0.2) k/uL PT (10.0-12.5) sec INR (<1.2) APTT (22.0-30.0) sec Sodium 141 (137-145) mmol/L Potassium 3.9 (3.5-5.1) mmol/L Chloride 104 (98-107) mmol/L Carbon Dioxide 30 (22-30) mmol/L Anion Gap 7 mmol/L BUN 14 (7-17) mg/dL Creatinine 0.87 (0.52-1.04) mg/dL Est GFR (CKD-EPI)AfAm 74 (>60 ml/min/1.73 sqM) Est GFR (CKD-EPI)NonAf 64 (>60 ml/min/1.73 sqM) Glucose 127 H (74-99) mg/dL POC Glucose (mg/dL) (70-110) mg/dL POC Glu School Director ID Calcium 8.8 (8.4-10.2) mg/dL Total Bilirubin 0.3 (0.2-1.3) mg/dL AST 27 (14-36) U/L ALT 29 (4-34) U/L Alkaline Phosphatase 75 (38-126) U/L Creatine Kinase 101 (30-135) U/L Troponin I <0.012 (0.000-0.034) ng/mL Total Protein 6.3 (6.3-8.2) g/dL Albumin 3.7 (3.5-5.0) g/dL Critical Care Time Critical Care Time: Yes Total Critical Care Time: 35 Disposition Clinical Impression: Cerebrovascular accident (CVA) Disposition: ADMITTED IP TO THIS HOSP Condition: Stable Is patient prescribed a controlled substance at d/c from ED?: No Referrals: Bill Pa MD [Primary Care Provider] - 1-2 days Time of Disposition: 19:28
[2023-08-23] MEDS ORDERED: ATORVASTATIN 40 MG TAB PO SCH (21:00)
--- NOTE | 2023-08-23 21:01 | CT ---
EXAMINATION TYPE: CT chest wo con DATE OF EXAM: 08/23/2023 COMPARISON: 09/24/2013 HISTORY: pleural effusion/copd/pulm htn. CT DLP: 385.6 mGycm. Automated Exposure Control for Dose Reduction was Utilized. TECHNIQUE: CT scan of the thorax is performed without IV contrast. FINDINGS: Moderate to Marked emphysematous changes with an upper lobe predominance. There are scattered sub-5 mm pulmonary nodules. There is no airspace/consolidative density or abnormal interstitial density. Three-vessel chest are normal and there is no mediastinal, hilar or axillary adenopathy. Rescanning through the upper abdomen reveals cholecystectomy. No focal osseous lesions are seen. IMPRESSION: 1. Moderate to marked emphysematous changes with an upper lobe predominance. 2. Multiple sub-5 mm pulmonary nodules. Routine screening at yearly intervals is recommended. 3. No acute cardiopulmonary disease.
[2023-08-23] MEDS: VENLAFAXINE HCL ER 75 MG CAP PO SCH (21:08)
[2023-08-23] MEDS: LORATADINE 10 MG TAB PO SCH (21:08)
[2023-08-23] MEDS: ATORVASTATIN 80 MG TAB PO STA (21:08)
[2023-08-23] MEDS: METOPROLOL TARTRATE 50 MG TAB PO SCH (21:08)
[2023-08-23] MEDS: IPRATROPIUM-ALBUTEROL 3 ML NEB INHALATION SCH (21:47)
[2023-08-24] MEDS: NON FORMULARY DRUG (Potassium Gluconate [Potassium Gluconate] 99 MG Tablet) PO SCH (01:00)
[2023-08-24] MEDS: IPRATROPIUM-ALBUTEROL 3 ML NEB INHALATION PRN (05:21)
[2023-08-24] MEDS: ASPIRIN 325 MG TAB PO SCH (08:25)
[2023-08-24 08:27] LABS: Basophils # (A) 0.1 k/uL (0-0.2); Basophils % (A) 1 %; Eosinophils # (A) 0.4 k/uL (0-0.7); Eosinophils % (A) 6 %; HCT 41.2 % (34.0-46.0); HGB 13.2 gm/dL (11.4-16.0); Lymphocytes # (A) 2.4 k/uL (1.0-4.8); Lymphocytes % (A) 30 %; MCH 31.3 pg (25.0-35.0); MCHC 32.2 g/dL (31.0-37.0); MCV 97.2 fL (80.0-100.0); Mean Platelet Volume 7.1; Monocytes # (A) 0.7 k/uL (0-1.0); Monocytes % (A) 9 %; Neutrophils % (A) 51 %; Platelet Count 232 k/uL (150-450); RBC 4.24 m/uL (3.80-5.40); RDW 12.3 % (11.5-15.5); WBC 7.8 k/uL (3.8-10.6)
[2023-08-24 08:36] LABS: ALT 30 U/L (4-34); AST 27 U/L (14-36); African American GFR (CKD) 63 (>60 ml/min/1.73 sqM); Albumin 3.8 g/dL (3.5-5.0); Alkaline Phosphatase 65 U/L (38-126); Anion Gap 7 mmol/L; Blood Urea Nitrogen 14 mg/dL (7-17); Carbon Dioxide 28 mmol/L (22-30); Chloride 106 mmol/L (98-107); Glucose 104 mg/dL (74-99); Non-African American GFR(CKD) 55 (>60 ml/min/1.73 sqM); Potassium 4.1 mmol/L (3.5-5.1); Sodium 141 mmol/L (137-145); Total Bilirubin 0.3 mg/dL (0.2-1.3); Total Protein 6.6 g/dL (6.3-8.2)
--- NOTE | 2023-08-24 09:51 | CA ---
Transthoracic Echo Report Name: Alix Reeves Age: 77 Gender: F : 1945 Exam Date: 08/24/2023 07:54 Exam Location: [facility] Ht (in): 68 Wt (lb): 160 Ordering Physician: Bill Pa MD Attending/Referring Phys: Steel Fabricator Catherine Gomez RDCS Procedure CPT: Indications: CVA Cardiac Hx: Technical Quality: Technically difficult study Contrast 1: Definity Total Dose (mL): 2 Contrast 2: Total Dose (mL): MEASUREMENTS (Male / Female) Normal Values 2D ECHO LA Volume 30.2 cm??? 18 - 58 / 22 - 52 cm??? LA Volume Index 16.1 cm???/m??? 16 - 28 cm???/m??? DOPPLER MV Area PHT 3.5 cm??? Mitral E Point Velocity 57.7 cm/s Mitral A Point Velocity 73.6 cm/s Mitral E to A Ratio 0.8 MV Deceleration Time 216.4 ms FINDINGS Left Ventricle Left ventricular ejection fraction is estimated at 50-55 % by visual. Left ventricle not well visualized. Right Ventricle Right ventricle not well visualized. Unable to estimate the right ventricular systolic pressure. Right Atrium Right atrium not well visualized. Left Atrium Normal left atrial size. Mitral Valve Mitral valve thickened. Mitral annular calcification. No evidence for mitral valve prolapse. No mitral stenosis. Trace mitral regurgitation. Aortic Valve Aortic valve not well visualized. No aortic valve stenosis or regurgitation. Tricuspid Valve Structurally normal tricuspid valve. No tricuspid stenosis. No tricuspid regurgitation. Pulmonic Valve No pulmonic stenosis. No pulmonic regurgitation. Pericardium No pericardial effusion. Aorta Aortic root and proximal ascending aorta not well visualized. CONCLUSIONS Technically very difficult study for interpretation Probably normal LV systolic function with EF between 50-55% Previewed by: Dr. Ben Mobley MD (Electronically Signed) Final Date: 24 Aug 2023 09:50
[2023-08-24] MEDS: CLOPIDOGREL 75 MG TAB PO STA (14:40)
[2023-08-24 15:26] LABS: Chol/HDL Ratio 2.37 Ratio; LDL Cholesterol,Calculated 55.3 mg/dL (0.0-131.0); VLDL Calculation 15.34 mg/dL (5.00-40.00)
--- NOTE | 2023-08-24 16:15 | MR ---
EXAMINATION TYPE: MR brain wo con DATE OF EXAM: 08/24/2023 COMPARISON: CT brain 08/23/2023 HISTORY: Neuro deficit, acute, stroke suspected. CONTRAST: Performed utilizing 0 mL intravenous Gadavist gadolinium contrast. TECHNIQUE: Multiplanar, multiecho imaging on a 3.0 Aparna magnet is performed through the brain. Stud y is performed within 24 hours of arrival to the hospital. The craniovertebral junction is normal. The pituitary is normal. Diffusion-weighted imaging is performed. There is some linear hyperintensity extending towards the l eft lateral ventricle on diffusion imaging compatible with an acute infarct. Series 303 image 168. Th is is evident on inversion recovery poorly visualized on T2 sequences. There are scattered punctate areas of hyperintensity on T2 and Inversion Recovery weighted sequences which are non-specific but can be related to microvascular ischemic changes. Ventricles and sulci are appropriate for the patient age. IMPRESSION: 1. Small Acute infarct left parietal lobe
[2023-08-24] MEDS: ATORVASTATIN 20 MG TAB PO SCH (20:54)
--- NOTE | 2023-08-25 03:33 | HP ---
HISTORY AND PHYSICAL HISTORY OF PRESENT ILLNESS: A 77-year-old female, who comes in for stroke-like symptoms including mild slurred speech, facial droop approximately 9:30 in the morning. She came to the emergency room. I have seen her in the emergency room and assessed her. Her gave her aspirin in the ER. Her NIH level was 2. She has hypertension, dyslipidemia. She drank eight servings of alcohol 2 days prior to admission, has been noncompliant with some of the medications at home. When she woke up, she was a little bit dizzy. MEDICATIONS: Her home medications include: 1. daily. 2. Crestor 20 mg daily. 3. Venlafaxine 75 b.i.d. 4. . PAST MEDICAL HISTORY: History of COPD, hypertension, dyslipidemia, history of colon polyps, cholecystectomy, breast surgery, hysterectomy, breast biopsy. PHYSICAL EXAMINATION: VITAL SIGNS: Temp 97.5, pulse 70s to 80s, respiratory rate 16 to 18, blood pressure 140s to 150s/117 in the ER. On exam done in the ER, was a little bit high at 170s. LABORATORY DATA: White count 7.7, hemoglobin 13.7. Sodium 141, potassium 3.9. GFR 64, total bilirubin 0.4. AST and ALT 27 and 29. ASSESSMENT AND PLAN: Acute CVA, workup in progress given. MRI of the brain has been ordered. CT of the neck and head were negative. We started most of her home medications. I cut her beta alex into half for now. Started her home medications. Prognosis guarded. Wait for Neurology recommendations. An MRI has been ordered for tomorrow. I saw her in the emergency room. MMODL / BLAYNEN: [id number] /
--- NOTE | 2023-08-25 08:02 | P.CNNES ---
History of Present Illness Consult date: 08/24/23 Requesting physician: Kevyn Toro Reason for Consult: CVA History of Present Illness: Patient is a 77-year-old right-handed female with history of hypertension, hyperlipidemia, ex tobacco use, COPD, came to the hospital by ambulance yesterday at 5:35 PM for acute strokelike symptoms. Patient states that yester day when she woke up at around 9 AM, she felt not well, and while walking her balance was off. She has gone to bed 11 PM the night prior in usual state of health. She noticed that she was slurring her words and was drooling from both sides. Her right side of the face was droopy. Patient states that she did not realize it was a stroke. Patient's has stage IV cancer and when his nurse came to check on him at 4:30 PM yesterday, noticed patient's strokelike symptoms and she called 911. Patient arrived to the ER at 5:35 PM. Patient denies any numbness or tingling of the upper or lower extremities. As per EMS flowsheet, they were called for strokelike symptoms. Patient noticed she had trouble speaking and slurring words at 9:30 AM this morning. When EMS arrived, patient was alert and orient x 4 with slurred speech. Patient has right facial droop. Patient denied right-sided weakness but does state that both of her legs are weak. EKG showed sinus rhythm with no ischemic changes. Her left pupil was dilated and not responsive to light. Patient's blood pressure was 177/96, pulse rate 95, respiration 18 saturation 96%. Blood glucose 152 mg/dL. Vital signs on arrival blood pressure 153/117, which improved to 140/87. Pulse rate 78 temperature 97.5. Blood test shows normal CBC, PT PTT, normal CMP. Troponin is negative. CT head revealed no significant abnormality. There is no acute bleed or mass effect. I personally reviewed CT head agree with the findings. Chest x-ray showed no acute process. EKG electronic report mention atrial fibrillation, although somebody has reviewed and mentioned as sinus rhythm. CT of the chest revealed moderate to marked emphysematous changes with an upper lobe predominance. Multiple sub-5 mm pulmonary nodules. IM to addres s. Patient's NIH stroke scale was reported as 2 in the ER. She was not a candidate for TNK because she came outside the window for tPA. Patient has history of hypertension, hyperlipidemia but no diabetes. She has smoked 2 pack/day for 10 years, quit 25 years ago. No previous history of strokes or TIA. Patient's brother of brainstem stroke. Patient has COPD and uses oxygen at night. Patient does not take any antiplatelet medication at home. 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 Review of Systems Constitutional: Denies chills, Denies fever Eyes: denies blurred vision, denies discharge, denies pain, denies loss of vision Ears: deny: decreased hearing, ear discharge Ears, nose, mouth and throat: Reports vertigo, Denies headache Cardiovascular: Reports shortness of breath, Denies chest pain Respiratory: Denies cough, Denies excessive sputum Gastrointestinal: Denies abdominal pain, Denies diarrhea, Denies nausea, Denies vomiting Musculoskeletal: Denies low back pain, Denies neck pain Integumentary: Denies pruritus, Denies rash Neurological: Reports as per HPI Past Medical History Past Medical History: COPD, CVA/TIA, Hyperlipidemia, Hypertension Additional Past Medical History / Comment(s): hx. colon polyps History of Any Multi-Drug Resistant Organisms: None Reported Past Surgical History: Breast Surgery, Cholecystectomy, Hysterectomy Additional Past Surgical History / Comment(s): breast biopsy, cyst removed right ear Past Anesthesia/Blood Transfusion Reactions: No Reported Reaction Past Psychological History: Anxiety Smoking Status: Former smoker Past Alcohol Use History: Occasional Past Drug Use History: None Reported - Past Family History Mother Family Medical History: No Reported History Brother(s) Family Medical History: CVA/TIA Additional Family Medical History / Comment(s): Patient states brother passed at Feb from "stem stroke" Medications and Allergies Home Medications Medication Instructions Recorded Confirmed Type traZODone HCL [Desyrel] 100 mg PO HS 10/06/15 08/23/23 History Fluticasone Propion/Salmeterol 1 puff INHALATION RT-BID 08/23/23 08/23/23 History [Fluticasone-Salmeterol 250-50] Loratadine [Claritin] 10 mg PO HS 08/23/23 08/23/23 History Magnesium Citrate Chew(Unknown 1 tab PO HS 08/23/23 08/23/23 History Dose) Metoprolol Tartrate [Lopressor] 100 mg PO BID 08/23/23 08/23/23 History Nac 600mg 1 tab PO DAILY 08/23/23 08/23/23 History Potassium Gluconate 99 mg PO HS 08/23/23 08/23/23 History Rosuvastatin [Crestor] 20 mg PO HS 08/23/23 08/23/23 History Venlafaxine HCl [Effexor XR] 75 mg PO BID 08/23/23 08/23/23 History Allergies Allergy/AdvReac Type Severity Reaction Status Date / Time morphine Allergy Rash/Hives Verified 08/23/23 18:50 Sulfa (Sulfonamide Allergy Rash/Hives Verified 08/23/23 18:50 Antibiotics) Physical Examination - Vital Signs Vital Signs: Vital Signs Temp Pulse Pulse Resp BP BP Pulse Ox 08/25/23 03:31 97.2 F L 85 20 136/68 98 08/25/23 00:00 97.2 F L 77 18 123/56 96 08/24/23 20:43 76 08/24/23 20:33 76 08/24/23 19:46 97.4 F L 71 18 131/60 96 08/24/23 16:36 98.2 F 71 17 135/78 93 L 08/24/23 15:00 78 16 135/78 95 08/24/23 14:00 71 20 144/73 95 08/24/23 12:01 58 L 08/24/23 11:51 60 08/24/23 11:00 60 20 123/55 98 08/24/23 10:00 85 16 145/93 98 08/24/23 09:29 56 L 08/24/23 09:21 97 08/24/23 09:18 56 L 08/24/23 08:22 97.8 F 71 16 159/79 98 Intake and Output 08/24/23 08/25/23 08/25/23 22:59 06:59 14:59 Other: Voiding Method Toilet # Voids 2 Patient is an elderly female, in no acute distress. Patient is alert awake oriented to time place and person. Speech and language functions are normal. Patient can name and repeat very well. No aphasia or dysarthria. Attention, concentration and fund of knowledge is adequate. On cranial nerve examination, pupils are unequal, right pupil is smaller than the left. This unequality has been present since her cataract surgery. Her visual drake are full on confrontation, with no neglect on double simultaneous stimulation. Extraocular muscles are intact with no nystagmus. Patient has right facial droop, central type. Her tongue protrudes to the midline. Palatal elevation and sensation normal, hearing and shoulder shrug normal, facial sensation normal. On muscle strength testing, there is no pronator drift and the strength is normal in arms and legs distally and proximally. Deep tendon reflexes are symmetric, hypoactive and plantars are withdrawal bilaterally. Sensory to touch is equal with no neglect on double simultaneous stimulation. Cerebellar function showed no ataxia for [id number] testing. No dysdiadochokinesia. No ataxia for [id number] testing on either side. Tone and bulk of muscles normal. Gait deferred.. On general examination, there is no carotid bruit or murmur, S1-S2 audible. Chest is clear on consultation. Abdomen is soft nontender. No organomegaly, bowel sounds present. Peripheral pulses are present. No peripheral edema. Results - Laboratory Findings CBC and BMP: 08/24/23 07:57 08/24/23 07:57 Abnormal Lab Findings: Abnormal Labs 08/23/23 08/23/23 08/23/23 17:42 17:47 17:47 APTT 21.0 L Glucose 127 H POC Glucose (mg/dL) 130 H Hemoglobin A1c 08/24/23 08/24/23 07:57 07:57 APTT Glucose 104 H POC Glucose (mg/dL) Hemoglobin A1c 6.1 H Assessment and Plan Assessment: * Acute ischemic stroke manifesting with dysarthria and right facial droop. Her dysarthria has resolved, but has persistent right facial droop. Current NIH stroke scale is 1. Patient was not a candidate for tPA because she came outside the window for tPA. No LVO. * Hypertension * Hyperlipidemia * Tobacco use * COPD Plan: * MRI of the brain without contrast, revealed small acute infarct left parietal lobe. I personally reviewed MRI agree with the findings. * 2-D echo was technically very difficult study for interpretation. Probable normal systolic function with EF between 50 to 55%. Normal left atrial size. * 2D echo suboptimal quality. Consider JESSICA. * 30-day event monitoring rule out paroxysmal atrial fibrillation. * CTA head and neck showed: Brachiocephalic origins are widely patent without significant stenosis. No significant stenosis of the common or internal carotid arteries within the neck. Calcified plaque at the origin of the right ICA artery resulting in mild stenosis. No occlusive disease, aneurysm or vascular malformation intracranially. * Fasting a.m. lipid panel with cholesterol 122, LDL 55, HDL 51 and triglycerides 76. Continue Crestor 20 mg daily. Lipids well-controlled. * Hemoglobin A1c 6.1 * Permissive hypertension for next 24-48 hours. Thereafter optimize blood pressure to normotensive level. * Patient was not taking any antiplatelet medication at home. Patient will be placed on dual antiplatelet medication for 21 days and then stop Plavix and continue aspirin indefinitely. Patient was given loading dose of Plavix 150 mg. * Neuro checks as per protocol. * Telemetry monitoring so far showing sinus rhythm in the 100. Some PVCs and PACs. No other arrhythmia. * PT, OT, speech therapy * DVT prophylaxis: Patient ambulatory. * Neurology will continue to follow. Thank you for the consult.
[2023-08-25] MEDS: CLOPIDOGREL 75 MG TAB PO SCH (08:06)
--- NOTE | 2023-08-25 10:55 | P.CRDCN ---
History of Present Illness Consult date: 08/25/23 History of present illness: History of Present Illness: The patient is a 77-year-old female with known history of hypertension, hyperlipidemia, history of COPD and prior history of smoking who presented with speech disturbance and evidence of CVA that subsequently resolved. Cardiology consultation was requested for transesophageal echocardiogram. The patient has mild to moderate dyspnea on exertion and occasional chest discomfort when she is late for her inhaler. She has no rest pain. She denies any dizziness, palpitations or syncope. She has been in sinus mechanism since her admission. She has no peripheral edema, PND or orthopnea. She had an echocardiogram that was technically difficult and no definite conclusions could be made. She has no recent cardiac workup. Medications: Metoprolol 100 mg twice a day, Crestor 20 mg daily, fluticasone, Desyrel, magnesium, Effexor Review of Systems: Respiratory: She has dyspnea on exertion, COPD and chronic cough GI: No nausea or vomiting . No history of peptic ulcer disease. No recent GI bleed. : No hematuria or dysuria. Nervous System: No stroke or seizure. Physical Examination: 77-year-old female, alert oriented no apparent distress,Blood pressure 136/60, Heart rate 80 Head: Normocephalic. Eyes: Sclerae nonicteric. Neck: Good carotid upstroke, no bruit, no jugular venous distention. Lungs: Decreased air exchange Heart: Regular rate and rhythm, S1-S2, no S3, no rub. No murmur. Abdomen: Soft nontender, positive bowel sounds no organomegaly. Extremities: No edema, intact distal pulses. Labs: Hemoglobin 13.2, potassium 4.1, BUN 14, creatinine 0.99. Troponin less than 0.012. Cholesterol 122, LDL 55. Brain MRI showed small acute left parietal lobe infarct. Chest x-ray with no acute infiltrate. CT angiogram of the head showed no evidence of significant obstructive disease. Echocardiogram was difficult with preserved systolic function. EKG: Sinus mechanism with PACs and nonspecific ST-T wave changes Impression: 1. Status post CVA with almost total resolution of her symptoms 2. History of COPD 3. History of hypertension 4. History of hyperlipidemia Plan: 1. Continue present therapy 2. Proceed with JESSICA tomorrow, the risks and the complications were discussed with the patient and her family and they are in agreement 3. Follow blood pressure 4. Depending on her progress further recommendations will be made 5. Thank you for this consult we will follow with you Past Medical History Past Medical History: COPD, CVA/TIA, Hyperlipidemia, Hypertension Additional Past Medical History / Comment(s): hx. colon polyps History of Any Multi-Drug Resistant Organisms: None Reported Past Surgical History: Breast Surgery, Cholecystectomy, Hysterectomy Additional Past Surgical History / Comment(s): breast biopsy, cyst removed right ear Past Anesthesia/Blood Transfusion Reactions: No Reported Reaction Past Psychological History: Anxiety Smoking Status: Former smoker Past Alcohol Use History: Occasional Past Drug Use History: None Reported - Past Family History Mother Family Medical History: No Reported History Brother(s) Family Medical History: CVA/TIA Additional Family Medical History / Comment(s): Patient states brother passed at Feb from "stem stroke" Medications and Allergies Home Medications Medication Instructions Recorded Confirmed Type traZODone HCL [Desyrel] 100 mg PO HS 10/06/15 08/23/23 History Fluticasone Propion/Salmeterol 1 puff INHALATION RT-BID 08/23/23 08/23/23 History [Fluticasone-Salmeterol 250-50] Loratadine [Claritin] 10 mg PO HS 08/23/23 08/23/23 History Magnesium Citrate Chew(Unknown 1 tab PO HS 08/23/23 08/23/23 History Dose) Metoprolol Tartrate [Lopressor] 100 mg PO BID 08/23/23 08/23/23 History Nac 600mg 1 tab PO DAILY 08/23/23 08/23/23 History Potassium Gluconate 99 mg PO HS 08/23/23 08/23/23 History Rosuvastatin [Crestor] 20 mg PO HS 08/23/23 08/23/23 History Venlafaxine HCl [Effexor XR] 75 mg PO BID 08/23/23 08/23/23 History Allergies Allergy/AdvReac Type Severity Reaction Status Date / Time morphine Allergy Rash/Hives Verified 08/23/23 18:50 Sulfa (Sulfonamide Allergy Rash/Hives Verified 08/23/23 18:50 Antibiotics) Physical Exam Vitals: Vital Signs Temp Pulse Pulse Resp BP BP Pulse Ox 08/25/23 08:24 84 08/25/23 08:10 86 08/25/23 08:04 97.9 F 85 17 153/77 95 08/25/23 03:31 97.2 F L 85 20 136/68 98 08/25/23 00:00 97.2 F L 77 18 123/56 96 08/24/23 20:43 76 08/24/23 20:33 76 08/24/23 19:46 97.4 F L 71 18 131/60 96 08/24/23 16:36 98.2 F 71 17 135/78 93 L 08/24/23 15:00 78 16 135/78 95 08/24/23 14:00 71 20 144/73 95 08/24/23 12:01 58 L 08/24/23 11:51 60 08/24/23 11:00 60 20 123/55 98 Intake and Output 08/24/23 08/25/23 08/25/23 22:59 06:59 14:59 Intake Total 118 Balance 118 Intake: Oral 118 Other: Voiding Method Toilet Toilet # Voids 2 Results 08/24/23 07:57 08/24/23 07:57 Lipids 08/24/23 Range/Units 07:57 Triglycerides 76.70 (0.00-149.00) mg/dL Cholesterol 122.00 (0.00-200.00) mg/dL HDL Cholesterol 51.40 (40.00-60.00) mg/dL Cholesterol/HDL Ratio 2.37 Ratio Current Medications Generic Name Dose Route Start Last Admin Trade Name Freq PRN Reason Stop Dose Admin Albuterol/Ipratropium 3 ml 08/23/23 22:00 08/25/23 08:10 Ipratropium-Albuterol 3 Ml Neb INHALATION 3 ml RT-QID PARMJIT Administration Albuterol/Ipratropium 3 ml 08/24/23 05:16 08/24/23 05:21 Ipratropium-Albuterol 3 Ml Neb INHALATION 3 ml RT-Q2H PRN Administration Shortness Of Breath Or Wheezing Aspirin 325 mg 08/24/23 09:00 08/25/23 08:05 Aspirin 325 Mg Tab PO 325 mg DAILY PARMJIT Administration Atorvastatin Calcium 20 mg 08/24/23 21:00 08/24/23 20:54 Atorvastatin 20 Mg Tab PO 20 mg HS PARMJIT Administration Clopidogrel Bisulfate 75 mg 08/25/23 09:00 08/25/23 08:06 Clopidogrel 75 Mg Tab PO 75 mg DAILY PARMJIT Administration Loratadine 10 mg 08/23/23 21:00 08/24/23 20:54 Loratadine 10 Mg Tab PO 10 mg HS PARMJIT Administration Metoprolol Tartrate 50 mg 08/23/23 21:00 08/25/23 08:05 Metoprolol Tartrate 50 Mg Tab PO 50 mg BID PARMJIT Administration Non-Formulary Medication 99 mg 08/23/23 21:00 08/24/23 20:55 Potassium Gluconate [Potassium Gluconate] PO Not Given HS PARMJIT Venlafaxine HCl 75 mg 08/23/23 21:00 08/25/23 08:06 Venlafaxine Hcl Er 75 Mg Cap PO 75 mg BID PARMJIT Administration Intake and Output 08/24/23 08/25/23 08/25/23 22:59 06:59 14:59 Intake Total 118 Balance 118 Intake: Oral 118 Other: Voiding Method Toilet Toilet # Voids 2 08/24/23 07:57 08/24/23 07:57
--- NOTE | 2023-08-25 12:58 | PN ---
PROGRESS NOTE She has a small right parietal infarct. Discussed the case with Dr. Lentz. He is going to send her home on Plavix and aspirin. Keep her until tomorrow. Pulse is 82 cardiovascular, S1-S2. Neurologically, she has no slurred speech. No facial droop anymore. She is doing better at this point. We will send her home today after I discuss the case with Neurology. Cardiology saw her now, wants to do a transesophageal echo tomorrow. do a transesophageal echo tomorrow apparently. Follow blood pressure. PROGNOSIS: Guarded. MMODL / IJN: [id number] /
[2023-08-26 08:24] VITALS: RESP 17
--- NOTE | 2023-08-26 09:53 | P.PN ---
Subjective Progress Note Date: 08/25/23 Patient was seen for a follow-up. Patient states that once in a while she staggers on the luo. Otherwise feels good. She feels just tired. No other focal symptoms. Telemetry monitoring showing sinus rhythm around 100 with some PVCs and PACs. Objective - Vital Signs Vital signs: Vital Signs Temp 97.7 F 08/25/23 11:52 Pulse 68 08/25/23 11:52 Resp 17 08/25/23 11:52 BP 141/69 08/25/23 11:52 Pulse Ox 98 08/25/23 11:52 FiO2 Intake & Output 08/24/23 08/25/23 08/25/23 18:59 06:59 18:59 Intake Total 476 Balance 476 Intake: Oral 476 Other: Voiding Method Toilet Toilet # Voids 2 - Exam Patient is doing much better. She still has very minimal right facial droop. Rest of the examination is nonfocal. - Labs CBC & Chem 7: 08/24/23 07:57 08/24/23 07:57 Labs: Abnormal Lab Results - Last 24 Hours (Table) 08/24/23 Range/Units 07:57 Hemoglobin A1c 6.1 H (<=6.0) % Assessment and Plan Assessment: * Acute ischemic stroke manifesting with dysarthria and right facial droop. Her dysarthria has resolved, but has persistent right facial droop. Current NIH stroke scale is 1. Patient was not a candidate for tPA because she came outside the window for tPA. No LVO. * Hypertension * Hyperlipidemia * Tobacco use * COPD Plan: * MRI of the brain without contrast, revealed small acute infarct left parietal lobe. I personally reviewed MRI agree with the findings. * 2-D echo was technically very difficult study for interpretation. Probable normal systolic function with EF between 50 to 55%. Normal left atrial size. * 2D echo suboptimal quality. Consulted cardiology for possible JESSICA. * 30-day event monitoring rule out paroxysmal atrial fibrillation. * CTA head and neck showed: Brachiocephalic origins are widely patent without significant stenosis. No significant stenosis of the common or internal carotid arteries within the neck. Calcified plaque at the origin of the right ICA artery resulting in mild stenosis. No occlusive disease, aneurysm or vascular malformation intracranially. * Fasting a.m. lipid panel with cholesterol 122, LDL 55, HDL 51 and triglycerides 76. Continue Crestor 20 mg daily. Lipids well-controlled. * Hemoglobin A1c 6.1 * Optimize control of blood pressure to normotensive level. * Patient was not taking any antiplatelet medication at home. Patient will be placed on dual antiplatelet medication for 21 days and then stop Plavix and continue aspirin indefinitely. Patient was given loading dose of Plavix 150 mg. * Neuro checks every shift. * Telemetry monitoring so far showing sinus rhythm in the 100. Some PVCs and PACs. No other arrhythmia. * Speech therapy * DVT prophylaxis: Patient ambulatory. * Neurologically clear, if the JESSICA comes back normal.
[2023-08-26] MEDS: IV FLUID CONTINUATION 1,000 ML IV ONE (09:57)
[2023-08-26] MEDS: fentaNYL (PF) 50 MCG/ML 2 ML AMP IVP ONE (10:18)
[2023-08-26] MEDS: MIDAZOLAM 2 MG/2 ML VIAL IVP ONE (10:18)
--- NOTE | 2023-08-26 10:36 | P.PN ---
Subjective Progress Note Date: 08/26/23 PROGRESS NOTE History of Present Illness: The patient is a 77-year-old female with known history of hypertension, hyperlipidemia, history of COPD and prior history of smoking who presented with speech disturbance and evidence of CVA that subsequently resolved. Cardiology consultation was requested for transesophageal echocardiogram. The patient has mild to moderate dyspnea on exertion and occasional chest discomfort when she is late for her inhaler. She has no rest pain. She denies any dizziness, palpitations or syncope. She has been in sinus mechanism since her admission. She has no peripheral edema, PND or orthopnea. She had an echocardiogram that was technically difficult and no definite conclusions could be made. She has no recent cardiac workup. August 25: The patient feels well this morning, she denies any chest discomfort, dizziness or palpitations. She continues to be in sinus mechanism with no episodes of atrial fibrillation. She underwent transesophageal echocardiogram that showed a preserved ventricle size and systolic function with normal appearance of the left atrial appendage and no evidence of shunting. Medications: Aspirin, Plavix, Lipitor 20 mg daily, metoprolol 50 mg twice a day PHYSICAL EXAMINATION: Blood pressure 140/80 heart rate 80 LUNGS: Clear to auscultation HEART: Regular rate and rhythm, S1, S2. No S3. No systolic murmur ABDOMEN: Soft, nontender, no organomegaly EXTREMETIES: No edema IMPRESSION: 1. Status post CVA with no evidence of shunting or intracardiac thrombus 2. History of smoking 3. History of hypertension 4. Hyperlipidemia PLAN: 1. Patient is stable from the cardiac standpoint to be discharged home 2. Follow-up as an outpatient 3. Event monitor as an outpatient 4. Depending on her progress further recommendations will be made Objective - Vital Signs Vital signs: Vital Signs Temp 98.1 F 08/26/23 07:44 Pulse 84 08/26/23 08:47 Resp 17 08/26/23 07:44 BP 144/86 08/26/23 07:44 Pulse Ox 93 L 08/26/23 07:44 FiO2 Intake & Output 08/25/23 08/26/23 08/26/23 18:59 06:59 18:59 Intake Total 594 10 110 Balance 594 10 110 Intake: IV 10 110 Invasive Line 2 10 Invasive Line 3 10 Oral 594 Other: Voiding Method Toilet Toilet Toilet # Voids 4 1 - Labs CBC & Chem 7: 08/24/23 07:57 08/24/23 07:57
--- NOTE | 2023-08-26 10:37 | P.PCN ---
Date of Procedure: 08/26/23 Description of Procedure: Indication: CVA Procedure Description: After explaining the procedure to the patient, it's risk and complications, blood pressure, heart rate and O2 saturation were monitored. The throat was sprayed with Cetacaine. Patient received 2 mg intravenous Versed, 50 mcg intravenous fentanyl. The probe was introduced into the esophagus without difficulty. Images were obtained. Following that, the probe was removed. There was no immediate complication. Findings: Left atrial size is normal, left atrial appendage is normal. Left ventricular size and systolic function are normal. The aortic valve appears to be normal. Mitral annulus calcification was noted. The tricuspid valve is normal. No pericardial effusion was noted. The descending thoracic aorta revealed mild atherosclerotic changes. No shunting across the interatrial septum with Valsalva maneuver and bubble study Doppler: Pulse wave and color Doppler were obtained, and revealed trace mitral regurgitation. There is no evidence of shunting by color Doppler study. Conclusion: 1. Normal left ventricular size and systolic function 2. Normal appearance of the left atrial appendage 3. No shunting across the interatrial septum 4. Trace mitral regurgitation 5. Mild atherosclerotic changes of the descending thoracic aorta
[2023-08-26] MEDS: fentaNYL (PF) 50 MCG/ML 2 ML AMP ONE (10:51)
[2023-08-26] MEDS: SODIUM CHLORIDE 0.9% 1,000 ML IV SCH (10:51)
[2023-08-26 13:04] VITALS: BP 106/73; PULSE 90; TEMP 98
--- NOTE | 2023-08-27 05:10 | PN ---
PROGRESS NOTE DATE OF SERVICE: 08/26/2023 SUBJECTIVE: The patient is admitted with a stroke, started on Plavix and aspirin. Other risk factor modifications went over with her. JESSICA negative for embolic stroke. CTA of the head and neck negative. She will follow up as an outpatient. Continue current treatments, Plavix, aspirin, high-dose cholesterol pills. Treatments for her COPD. Prognosis guarded. Follow up as an outpatient in a week. OBJECTIVE: LUNGS: Clear. CARDIOVASCULAR: S1, S2. NEUROLOGIC: Nonfocal. Currently, she is doing much better. Prognosis guarded. MMODL / IJN: [id number] /
[2023-08-27] MEDS ORDERED: ASPIRIN 81 MG PO SCH (09:00)
== END 2023-08-26 12:46 | disposition home or self-care (01) | DRG 66 ==
LOC: EC 17:35 → 3SCARD 19:25
PROVIDERS: ADMIT Family Medicine; ATTEND Family Medicine
PROC: B24BZZ4 Ultrasonography of Heart with Aorta, Transesophageal (ICD-10-PCS; principal; 2023-08-26 09:50)
DX: I63.9 Cerebral infarction, unspecified (principal); E78.5 Hyperlipidemia, unspecified; I10 Essential (primary) hypertension; J44.9 Chronic obstructive pulmonary disease, unspecified; I34.81 Nonrheumatic mitral (valve) annulus calcification; I48.91 Unspecified atrial fibrillation; F41.9 Anxiety disorder, unspecified; G62.9 Polyneuropathy, unspecified; R29.702 NIHSS score 2; R29.810 Facial weakness; R47.1 Dysarthria and anarthria; I49.3 Ventricular premature depolarization; Z79.51 Long term (current) use of inhaled steroids; Z79.899 Other long term (current) drug therapy; Z87.891 Personal history of nicotine dependence; Z91.199 Patient's noncompliance with other medical treatment and regimen due to unspecified reason; Z88.5 Allergy status to narcotic agent; Z88.2 Allergy status to sulfonamides
CPT/HCPCS: 36415; 70450; 70496; 70498; 70551; 71045; 71250; 80053; 80061; 82550; 83036; 84484; 85025; 85610; 85730; 93306; 93312; 93320; 93325; 94640; 94760; 96374; 99291

== ENCOUNTER → 2024-01-31 | Outpatient (CLI) | payer MEDICARE ==
--- NOTE | 2024-01-31 10:30 | CT ---
EXAMINATION TYPE: CT abdomen pelvis wo con DATE OF EXAM: 01/31/2024 HISTORY: abd distension, gaseous, possible hernia per patient CT DLP: 502.60 mGycm. Automated Exposure Control for Dose Reduction was Utilized. TECHNIQUE: CT scan of the abdomen and pelvis is performed without oral or IV contrast. COMPARISON: 04/01/2021 FINDINGS: Within the limitations of a non-contrast study, the following observations are made. There are 3 stable sub-6 mm nodules in the left lung base. The gallbladder is surgically absent. There is no biliary ductal dilatation. There is no organomegaly of the liver, pancreas, spleen or adrenal glands. There is stable cysts in t he right lobe of the liver. There are no renal calcifications or hydronephrosis. There are stable small hyperdense cysts of both kidneys largest of which is in the right kidney anteriorly measuring approximately 8 mm. The caliber of the abdominal aorta is normal and there is no retroperitoneal adenopathy or hemorrhage . The bowel loops are normal in caliber is no evidence of obstruction. There is marked diverticulosis of the transverse, descending and sigmoid colon with no evidence of ac kasaan diverticulitis. No inflammatory changes are identified in the mesentery and there is no free intr aperitoneal air or fluid. There is a moderate to large amount of stool within the colon and rectum. There is no pelvic mass, free fluid, abscess or adenopathy. There is surgical absence of the uterus. The osseous structures and soft tissues are unremarkable. IMPRESSION: 1. Marked diverticulosis without CT evidence of acute diverticulitis. Moderate to large amount of sto ol within the colon and rectum. 2. No bowel obstruction. 3. 3 to 4 stable sub-6 mm nodules in the left lung base. 4. No renal calcifications or hydronephrosis. Stable simple cortical cysts of both kidneys with addit ional small stable hemorrhagic cysts. [facility], , 01/31/2024 10:28 AM
== END | disposition home or self-care (01) ==
LOC: RADCTMAIN 09:28
PROVIDERS: ATTEND Family Medicine
DX: R14.0 Abdominal distension (gaseous)
CPT/HCPCS: 74176

== ENCOUNTER → 2024-07-30 | Outpatient (CLI) | payer MEDICARE ==
--- NOTE | 2024-07-30 13:29 | US ---
EXAMINATION TYPE: US venous doppler duplex LE BI DATE OF EXAM: 07/30/2024 12:24 PM COMPARISON: NONE CLINICAL INDICATION: Female, 78 years old with history of [id number], R2242, [id number], R2241; pain, Pain TECHNIQUE: The lower extremity deep venous system is examined utilizing real time linear array sonog linette with graded compression, color doppler sonography, and spectral doppler. SIDE PERFORMED: Bilateral FINDINGS: VESSELS IMAGED: Common Femoral Vein Deep Femoral Vein Greater Saphenous Vein * Femoral Vein Popliteal Vein Small Saphenous Vein * Proximal Calf Veins (* superficial vessels) Right Leg: Negative for DVT, Color Doppler imaging shows patency of the vessels. Spectral waveforms are within normal limits. Left Leg: Negative for DVT, Color Doppler imaging shows patency of the vessels. Spectral waveforms a re within normal limits. IMPRESSION: 1. Bilateral lower extremity ultrasound negative for deep venous thrombosis [facility], , 07/30/2024 1:26 PM
--- NOTE | 2024-07-30 15:56 | MM ---
Reason for Exam: Screening (asymptomatic). Last mammogram was performed 1 year(s) and 8 month(s) ago. Patient History: Menarche at age 12. First Full-Term at age 19. Hysterectomy at age 39. Patient used Hormonal Contraceptives for 23 years. 1998, Benign Excisional Biopsy on the right side. Maternal grandmother had breast cancer. Mother had breast cancer, age 59. Risk Values: Kristen 5 year model risk: 3.8%. NCI Lifetime model risk: 6.3%. Prior Study Comparison: 01/26/2020 Right Diagnostic Mammogram, [facility]. 12/15/2021 Bilateral MG 3D screening mammo w/cad, [facility]. 12/20/2022 Bilateral MG 3D diag mammo w/cad [place], [facility]. Tissue Density: There are scattered areas of fibroglandular density. Findings: Analyzed By CAD. There is no suspicious group of microcalcifications or new suspicious mass in either breast. Overall Assessment: Negative, BI-RAD 1 Management: Screening Mammogram of both breasts in 1 year. See note below in regards to the patient's increased 5 year Kristen score. Patient should continue monthly self-breast exams. A clinical breast exam by your physician is recommended on an annual basis. This exam should not preclude additional follow-up of suspicious palpable abnormalities. Note on Kristen scores and lifetime risk: 1. A Kristen score greater than 3% is considered moderate risk. If this is the case, consider specialist referral to assess eligibility for a risk reducing agent. 2. If overall lifetime risk for the development of breast cancer is 20% or higher, the patient may qualify for future screening with alternating mammogram and breast MRI. [facility], , 07/30/2024 3:53 PM. Electronically signed and approved by: Ok Acosta M.D. Radiologist
[2024-07-30 18:06] LABS: HCT 42.2 % (37.2-46.3); HGB 13.2 g/dL (12.0-15.0); MCH 30.6 pg (27.0-32.0); MCHC 31.3 g/dL (32.0-37.0); MCV 97.7 FL (80.0-97.0); Mean Platelet Volume 9.8 FL (9.5-12.2); NRBC Per 100 WBC 0 X 10*3/uL (0.00-0.01); Platelet Count 285 X 10*3/uL (140-440); RBC 4.32 X 10*6/uL (4.10-5.20); RDW 11.9 % (11.5-14.5); WBC 9.16 X 10*3/uL (4.50-10.00)
[2024-07-30 18:35] LABS: ALT 23 U/L (8-44); AST 25 U/L (13-35); Albumin/Globulin Ratio 1.74 Ratio (1.60-3.17); Alkaline Phosphatase 71 U/L (41-126); BUN/Creat Ratio 16.44 Ratio (12.00-20.00); Blood Urea Nitrogen 14.8 mg/dL (9.0-27.0); Calcium 9.1 mg/dL (8.7-10.3); Carbon Dioxide 28.5 mmol/L (21.6-31.8); Chloride 103 mmol/L (96-109); Ferritin 45.2 ng/mL (10.0-291.0); Globulin 2.3 g/dL (1.6-3.3); Glucose 95 mg/dL (70-110); Potassium 4.3 mmol/L (3.5-5.5); Sodium 142 mmol/L (135-145); Total Bilirubin 0.2 mg/dL (0.3-1.2); Total Protein 6.3 g/dL (6.2-8.2)
--- NOTE | 2024-08-04 10:28 | BD ---
EXAMINATION TYPE: Axial Bone Density DATE OF EXAM: 07/30/2024 CLINICAL HISTORY: 78 years old Female. ICD-10 CODE: Z78.0 POST MENOPAUSAL , Additional History: Height: 65 Weight: 157 FRAX RISK QUESTIONS: Glucocorticoids (More than 3mos): yes (Ex: prednisone, prednisolone, methylprednisolone, dexamethasone, and hydrocortisone). 3. Menopause before 45: hyst including ovaries removed after 49 yrs old RISK FACTORS HISTORY OF: COPD, MEDICATIONS: bp meds, copd inhalers, prednisone, calcium, EXAM MEASUREMENTS: Bone mineral densitometry was performed using the LoopFuse System. Bone mineral density as measured about the Lumbar spine is: ----- L1-L4(G/cm2): 0.892 T Score Values are as follows: ----- L1: -1.8 ----- L2: -2.0 ----- L3: -2.9 ----- L4: -2.8 ----- L1-L4: -2.4 Z Score Values are as follows: ----- L1: -0.2 ----- L2: -0.4 ----- L3: -1.3 ----- L4: -1.2 ----- L1-L4: -0.8 Bone mineral density has: Decreased -0.8% since study of: 01.21.2020 Bone mineral density about the R hip (g/cm2): 0.848 Bone mineral density about the L hip (g/cm2): 0.853 T Score values are as follows: -----R Neck: -2.0 -----L Neck: -2.0 -----R Total: -1.3 -----L Total: -1.2 Z Score values are as follows: -----R Neck: 0.1 -----L Neck: 0.0 -----R Total: 0.5 -----L Total: 0.6 Bone mineral density has: Decreased -2.1% since study of: 01.21.2020 FRAX%s: The graph provided illustrates a 24.1% chance for a major osteoporotic fx and a 8.1% chance f or the hips probability for fx in 10 years time. IMPRESSION: Osteopenia (T Score between -2.5 and -1) remains present. There remains slightly increased risk of fracture and the patient may be considered for treatment. Re-Screen 2-5 years. NOTE: T-SCORE=SD OF THE YOUNG ADULT MEAN. [facility], , 08/04/2024 10:25 AM
== END | disposition home or self-care (01) ==
LOC: RADUSWWP 12:01
PROVIDERS: ATTEND Family Medicine
DX: Z12.31 Encounter for screening mammogram for malignant neoplasm of breast (principal); R92.323 Mammographic fibroglandular density, bilateral breasts; M79.661 Pain in right lower leg; Z80.3 Family history of malignant neoplasm of breast; M85.89 Other specified disorders of bone density and structure, multiple sites; Z78.0 Asymptomatic menopausal state; Z92.0 Personal history of contraception; M79.662 Pain in left lower leg
CPT/HCPCS: 77063; 77067; 77080; 80053; 82607; 82728; 82746; 85027; 86038; 93970

== ENCOUNTER → 2024-10-10 | Outpatient (CLI) | payer MEDICARE ==
[2024-10-10 11:09] LABS: African American GFR (CKD) 62 (>60 ml/min/1.73 sqM); Blood Urea Nitrogen 21 mg/dL (7-17); Non-African American GFR(CKD) 54 (>60 ml/min/1.73 sqM)
--- NOTE | 2024-10-10 11:54 | CT ---
EXAMINATION TYPE: CT chest w con DATE OF EXAM: 10/10/2024 11:31 AM COMPARISON: 08/23/2023. CLINICAL INDICATION: Female, 79 years old with history of R91.1 SOLITARY PULMONARY NODULE; PHH, f/u l vero nodule TECHNIQUE: Multiple axial images were obtained through the chest. Sagittal and coronal reformats were created for review. MIP was performed on a separate workstation. Contrast used:80 mL of Isovue 300 with IV Contrast (None if empty) Oral contrast used: (None if empty) CT DLP: 294.2 mGycm, Automated exposure control for dose reduction was used. FINDINGS: LUNGS/ PLEURA: Left upper lobe 31 x 29 x 25 mm mass. This does extend along the pleura and likely sameera roinvades into the mediastinum. Severe emphysema changes throughout the lungs. Right lower lobe 5 mm pulmonary nodule is stable from prior. Left lower lobe lateral pulmonary nodules measuring 2 mm serie s 3 image 49 and 4 mm same images are stable. Left lower lobe 3 mm image 32 is stable. No focal conso lidation, pneumothorax or pleural effusion. AIRWAY: Patent and unremarkable. HEART: Size within normal limits. No significant coronary artery calcifications. MEDIASTINUM: No gross evidence of adenopathy. VASCULATURE: No aortic aneurysm. MUSCULOSKELETAL: No acute osseous abnormalities SOFT TISSUES/LYMPH NODES: Unremarkable. LOWER NECK: No significant findings. UPPER ABDOMEN: The gallbladder surgically absent. Scattered subcentimeter simple appearing renal cyst s. No follow-up recommended. IMPRESSION: Left upper mass along the medial border of the mediastinum measuring up to 31 mmwith likely microinva sang into the mediastinum present. Findings concerning for malignancy. No evidence for lymphadenopath y or distant metastatic disease at this time. Oncologic workup recommended. Severe emphysema. Follow up recommendations for incidental pulmonary nodules, if there are any, are per [employer] or [employer]. [email or web address]://radiopaedia.org/articles/squhmaivnd-qijmkvy-[email or web address]-[email or web address]?lang=us [facility], , 10/10/2024 11:52 AM
== END | disposition home or self-care (01) ==
LOC: RADCTMAIN 10:24
PROVIDERS: ATTEND Internal Medicine
DX: R91.1 Solitary pulmonary nodule (principal); J43.9 Emphysema, unspecified
CPT/HCPCS: 82565; 84520; 71260; 36415; Q9967

== ENCOUNTER → 2024-10-23 | Outpatient (CLI) | payer MEDICARE ==
--- NOTE | 2024-10-24 08:49 | PE ---
EXAMINATION TYPE: PET CT fusion skull to thigh DATE OF EXAM: 10/23/2024 CLINICAL INDICATION:Female, 79 years old with history of R91.1 SOLITARY PULMONARY NODULE; TECHNIQUE: Following the intravenous administration of 8.8 mCi of F-18 FDG, whole body images are p erformed from the skull base to the Mid thigh. Images are reviewed on the computer in the coronal, a xial, and sagittal planes. Reconstructed rotating images are created on independent workstation and reviewed on the computer. A non-contrast CT is performed in conjunction with the PET scan. Glucose level 109 mg/dL CT DLP: 680 mGycm, Automated exposure control for dose reduction was used. COMPARISON: CT 10/10/2024, PET/CT None, MRI: None FINDINGS: Mediastinal SUV mean is 3.04. Hepatic parenchyma SUV mean is 2.7. SKULL BASE AND NECK: No suspicious radiotracer activity. CHEST, MEDIASTINUM, AND HILAR REGION: * Medial left upper lung mass likely invading into the mediastinum measuring 35 x 30 mm Max SUV 31.9 * No FDG avid lymph nodes identified at this time in the mediastinum or other evidence for metastati c disease. ABDOMEN AND PELVIS: No suspicious radiotracer activity. MUSCULOSKELETAL STRUCTURES: No suspicious radiotracer activity. OTHER CT: Bilaterally aphakia atherosclerosis of the carotid bifurcations. The gallbladder surgically absent. Simple appearing hepatic cyst. Simple appearing bilateral renal cysts. Scattered colonic div erticula. Uterus is surgically absent. IMPRESSION: Upper lung mass compatible with malignancy with likely microscopic invasion into the mediastinum [facility], , 10/24/2024 8:47 AM
== END | disposition home or self-care (01) ==
LOC: RADPETMAIN 14:46
PROVIDERS: ATTEND Internal Medicine
DX: R91.1 Solitary pulmonary nodule (principal)
CPT/HCPCS: 78815; A9552

== ENCOUNTER 2024-11-06 10:46 | Day surgery (SDC) | payer MEDICARE ==
[2024-11-05 09:47] VITALS: BMI 23.6
[~2024-11-06 10:46] MED LIST changes: -LIDOCAINE 1% 20 ML VIAL (10MG/ML) FOR IV START INTRADERMA PRN; -PROPOFOL 10 MG/ML 20 ML VIAL IV ONE; +fentaNYL (PF) 50 MCG/ML 2 ML AMP IV PRN
[2024-11-06] MEDS: IV FLUID CONTINUATION 1,000 ML IV ONE (12:02)
[2024-11-06] MEDS: LACTATED RINGERS 1,000 ML IV SCH (12:27)
[2024-11-06] MEDS: ONDANSETRON 4 MG/2 ML VIAL IVP ONE (12:28)
[2024-11-06] MEDS: DEXAMETHASONE SOD PHOSPHATE 4 MG/ML 1 ML VIAL IV ONE (12:28)
[2024-11-06] MEDS ORDERED: fentaNYL (PF) 50 MCG/ML 2 ML AMP ONE (13:40)
[2024-11-06] MEDS ORDERED: PHENYLEPHRINE-0.9% NACL SYG 1,000 MCG/10 ML SYRINGE ONE (13:40)
[2024-11-06] MEDS ORDERED: SUCCINYLCHOLINE CHLORIDE 200 MG/10 ML VIAL IV ONE (13:40)
[2024-11-06] MEDS ORDERED: NEOSTIGMINE 1 MG/ML 10 ML VIAL ONE (13:40)
[2024-11-06] MEDS ORDERED: ROCURONIUM 10 MG/ML (5 ML VIAL) IV ONE (13:40)
[2024-11-06] MEDS ORDERED: LIDOCAINE 1% INJ 10MG/ML (20 ML MDV) ONE (13:40)
[2024-11-06] MEDS ORDERED: ePHEDrine 50 MG/ML 1 ML VIAL ONE (13:40)
[2024-11-06] MEDS ORDERED: PROPOFOL 10 MG/ML 20 ML VIAL IV ONE (13:40)
[2024-11-06] MEDS ORDERED: GLYCOPYRROLATE 0.2 MG/ML 2 ML VIAL ONE (13:40)
--- NOTE | 2024-11-06 14:58 | P.PCN ---
Date of Procedure: 11/06/24 Operative Findings: Preoperative Diagnosis: Left upper lobe mass, 31 x 29 mm in size. Postoperative Diagnosis: Left upper lobe mass Procedure(s) Performed: Flexible bronchoscopy Robotic-assisted bronchoscopy and addition to radial ultrasound evaluation of the left upper lobe mass Robotic-assisted transbronchial transbronchial needle aspirate, transbronchial biopsies and transbronchial brushing endobronchial lavage of the left upper lobe mass Endobronchial ultrasound Anesthesia: RONIA Surgeon: Radha Jacobson Estimated Blood Loss (ml): 0 Pathology: other Condition: stable Disposition: same day Operative Findings: A physical exam was performed. Informed consent was obtained from the patient after explaining all the risks (pneumothorax, life threatening bleeding, infection and adverse effects due to medications), benefits and alternatives to the procedure which the patient appeared to understand and so stated. The patient was connected to the monitoring devices. General anesthesia was induced and the patient was intubated by anesthesia. A final timeout was performed and the procedure confirmed by the attending staff bronchoscopist. The bronchoscope was inserted and the airway examined. Airway examination shows that the distal trachea, Right upper lobe and middle lobe and lower lobe bronchi was all within normal limits. Patient left mainstem bronchus is within normal limits. Examination of left lower lobe was within normal limits. The left upper lobe bronchus and the lingular segment was also patent within normal limits. The flexible bronchoscope was removed and the robotic bronchoscope was inserted. Registration was completed. I next guided the robotic bronchoscope using the navigation system into the left upper lobe mass. Once in proper position, the bronchoscope was frozen. The radial EBUS probe was placed through the bronchoscope and confirmed abnormal u/s images vs normal lung. A 23 gauge needle was placed through the working channel and another fluoroscopic guidance, we sampled the area in the left upper lobe where the opacity was present. We then used a cloud biopsy pattern with ultrasound confirmation for 2 additional passes with the needle. Following that, a forceps were next introduced through working channel and extended the appropriate distance 2 transbronchial biopsies were performed using fluoroscopic guidance. The u/s probe was then reinserted to confirm location. When confirmed this process was repeated for a total of 6 transbronchial biopsies. U/S evaluation was then used to confirm location. Following that, a total of 60 cc of saline was infused into the right upper lobe and approximately 8 to 10 cc of saline was aspirated and the bronchial lavage was sent for cytologic evaluation. Flex. bronchoscope was inserted and regular suctioning was done. At the completion of the procedure, no residual secretions or bloody material within the airway. The bronchoscope was removed. The patient was extubated. FINDINGS: 1.The airways appeared normal 2 Successful navigation, ultrasonographic identification, and biopsies of left upper lobe mass 3.The the radial ultrasound view was concentric RECOMMENDATIONS: Await pathology and cytology results The referring physician will be alerted to the results when available. The patient was advised to follow up with the referring physician with the biopsy results Patient will be called with results.
[2024-11-06 15:04] VITALS: TEMP 96.8
--- NOTE | 2024-11-06 15:17 | FL ---
EXAMINATION TYPE: FL bronchoscopy DATE OF EXAM: 11/06/2024 2:46 PM COMPARISON: Pre Operative Images if available both CT/MRI or plain film CLINICAL INDICATION: Female, 79 years old with history of Lung Nodule; TECHNIQUE: FL bronchoscopy, multiple fluoroscopic images provided for procedure. DAP: 8.3312 mGym2 Gycm2 uGym2 cGycm2 or equivalent. FINDINGS: ION bronchoscopy images demonstrate bronchoscope terminating in the lung. No immediate complications identified, no pneumothorax identified. IMPRESSION: 1. No evidence for intraoperative complication. 2. Please see the operative/procedural note for further details. [facility], , 11/06/2024 3:14 PM
--- NOTE | 2024-11-06 15:32 | CT ---
EXAMINATION TYPE: CT Chest wo ION protocol DATE OF EXAM: 11/06/2024 11:06 AM COMPARISON: PET/CT 10/23/2024 CLINICAL INDICATION: Female, 79 years old with history of ION Bronchoscopy; shortness of breath. TECHNIQUE: Thin section CT of the chest for bronchoscopic navigation purposes. Coronal and sagittal r econstructions. CT DLP: 432 mGycm, Automated exposure control for dose reduction was used. FINDINGS: Spiculated 4.1 cm medial left upper lobe mass with broad based abutment of the pleura is redemonstrat ed. Background advanced emphysematous change. Some bronchial wall thickening in the lower lungs. Some minimal focal tree in bud opacity anterior ri ght upper lobe may reflect some vasculitis. Fatty left-sided Bochdalek hernia incidentally noted. Scattered mild atherosclerotic calcifications throughout the thoracic aorta. Ectatic lower descending thoracic aorta 2.9 cm. No thoracic adenopathy identified by CT size criteria. 1.1 cm cyst right liver lobe. Cholecystectomy clips. Multiple renal cortical cysts visualized measuri ng up to 1.8 cm. A couple are intermediate or high density suggesting proteinaceous/hemorrhagic cysts . Bones: Moderate degenerative disc disease near the thoracolumbar junction. IMPRESSION: 1. Spiculated 4.1 cm medial left upper lobe mass redemonstrated with a background of advanced emphyse ma. 2. Minimal tree-in-bud opacities anterior right upper lobe could reflect some bronchiolitis. [facility], , 11/06/2024 3:30 PM
--- NOTE | 2024-11-06 15:46 | XR ---
EXAMINATION TYPE: XR chest 1V DATE OF EXAM: 11/06/2024 3:23 PM COMPARISON: Chest radiographs from 08/23/2023. CLINICAL INDICATION: Female, 79 years old with history of post bx; TECHNIQUE: XR chest 1V Frontal view of the chest. FINDINGS: Lungs/Pleura: There is no evidence of pleural effusion, focal consolidation, or pneumothorax. Pulmonary vascularity: Unremarkable. Heart/mediastinum: Cardiomediastinal silhouette is unremarkable. Musculoskeletal: No acute osseous pathology. IMPRESSION: No acute cardiopulmonary disease/process. Post biopsy changes without evidence for pneumothorax. [facility], , 11/06/2024 3:44 PM
[2024-11-06 16:04] VITALS: BP 121/65; PULSE 76; RESP 14
== END 2024-11-06 16:15 | disposition home or self-care (01) ==
LOC: ORWHC2ENDO 10:46
PROVIDERS: ATTEND Internal Medicine Critical Care Medicine
DX: C34.12 Malignant neoplasm of upper lobe, left bronchus or lung (principal); J96.11 Chronic respiratory failure with hypoxia; J44.9 Chronic obstructive pulmonary disease, unspecified; I10 Essential (primary) hypertension; M81.0 Age-related osteoporosis without current pathological fracture; E78.00 Pure hypercholesterolemia, unspecified; F32.A Depression, unspecified; K21.9 Gastro-esophageal reflux disease without esophagitis; Z79.899 Other long term (current) drug therapy; Z79.51 Long term (current) use of inhaled steroids; Z88.2 Allergy status to sulfonamides; Z88.7 Allergy status to serum and vaccine; Z87.891 Personal history of nicotine dependence; Z86.73 Personal history of transient ischemic attack (TIA), and cerebral infarction without residual deficits
CPT/HCPCS: 88108; 88305; 88342; 87070; 87205; 87116; 87102; 87206; 71045; 71250; 31628; 31629; 31624; J0330; J1100; J2710; J2405; J2003; J3010; J2704; J2371; J1596; S2900